=== PATIENT | female | born 1995 | race Caucasian/White ===

== ENCOUNTER 2017-08-19 11:13 | Emergency (ER) | payer OTHER, SELFPAY ==
[2017-08-19 11:37] VITALS: BP 115/80; PULSE 100; RESP 13; TEMP 36.9; O2SAT 98
[2017-08-19 11:53] LABS: Bacteria Urine None Seen
--- NOTE | 2017-08-19 12:03 | ED.LOWEXIN ---
HPI - Extremity Injury (Lower) <Cece Padilla PA-C - Last Filed: 08/19/17 20:20> General Chief Complaint: Extremity Injury, Lower Stated Complaint: RIGHT HIP PAIN Time Seen by Provider: 08/19/17 12:02 Source: patient Mode of arrival: ambulatory Limitations: no limitations History of Present Illness HPI Narrative: This 22-year-old female states that she was drinking last night, tripped and fell because she was wearing heels, and hit her right hip. She states that she felt like it was okay at the time and was walking on it, but awoke this morning with a lot of pain on the side of her hip that radiates into her mid lateral thigh. Pain is worse with trying to walk or pressure on the area. She denies any other contusion such as head contusion. Denies neck or back pain. She denies any weakness or paresthesia in the legs, bowel dysfunction or difficulty urinating. She did mention to the nurse she has had urinary frequency for a couple of days and took some azo. She denies dysuria, hematuria, urgency or other new urinary symptoms Related Data Home Medications Medication Instructions Recorded Confirmed vit-iron fum-folic ac 1 cap PO QDAY #0 06/25/16 [Mynatal] Previous Rx's Medication Instructions Recorded hydrocodone-acetaminophen [[place]] 1 - 2 tab PO Q6H PRN #10 tab 06/25/16 ondansetron [Zofran ODT] 4 mg SUBLINGUAL Q6HP PRN #10 odt 06/25/16 naproxen 500 mg PO BID PRN #14 tab 08/19/17 phenazopyridine [Pyridium] 200 mg PO TID PRN 2 Days #6 tab 08/19/17 Allergies Allergy/AdvReac Type Severity Reaction Status Date / Time Sulfa (Sulfonamide Allergy Unknown HIVES Verified 08/19/17 12:28 Antibiotics) [SULFA (SULFONAMIDE ANTIBIOTICS)] Review of Systems <Cece Padilla PA-C - Last Filed: 08/19/17 20:20> Review of Systems All systems reviewed & are unremarkable except as noted in HPI and below Exam <Cece Padilla PA-C - Last Filed: 08/19/17 20:20> Narrative Exam Narrative: GENERAL APPEARANCE: Patient sitting comfortably, in no distress. LUNGS: Clear to auscultation bilaterally. HEART: Rate and rhythm regular without murmur, normal S1 and S2, no S3 or S4. MUSCULOSKELETAL: No tenderness over the lumbosacral spine, right posterior hip or SI. She is tender over the lateral hip that the trochanter and TFL insertion to the mid TFL, no tenderness elsewhere over the hip or thigh. She has reduced active and passive range of motion secondary to tenderness, negative Junaid's test. Hip flexion strength 5/5, knee extensors and ft plantar flexion 5/5. NEUROVASCULAR: Ft are warm and pink, right lower extremity sensation grossly intact DERM: no eccymoses or abrasions Initial Vital Signs Initial Vital Signs: Vital Signs Temperature 98.4 F 08/19/17 11:37 Pulse Rate 100 H 08/19/17 11:37 Respiratory Rate 13 08/19/17 11:37 Blood Pressure 115/80 08/19/17 11:37 Pulse Oximetry 98 08/19/17 11:37 <DO Ana María Hernandez Last Filed: 08/20/17 07:24> Initial Vital Signs Initial Vital Signs: Vital Signs Temperature 98.4 F 08/19/17 11:37 Pulse Rate 100 H 08/19/17 11:37 Respiratory Rate 13 08/19/17 11:37 Blood Pressure 115/80 08/19/17 11:37 Pulse Oximetry 98 08/19/17 11:37 Course <Cece Padilla PA-C - Last Filed: 08/19/17 20:20> Orders Ordered: Discontinued Medications Ibuprofen (Advil) 800 mg PO NOW ONE Stop: 08/19/17 12:18 Last Admin: 08/19/17 12:28 Dose: 800 mg Vital Signs - 8 hr 08/19/17 12:57 Pulse Rate 83 Respiratory Rate 16 Blood Pressure [Left Arm] 115/86 H Pulse Oximetry 100 <DO Ana María Hernandez Last Filed: 08/20/17 07:24> Orders Ordered: Discontinued Medications Ibuprofen (Advil) 800 mg PO NOW ONE Stop: 08/19/17 12:18 Last Admin: 08/19/17 12:28 Dose: 800 mg Vital Signs - 8 hr 08/19/17 12:57 Pulse Rate 83 Respiratory Rate 16 Blood Pressure [Left Arm] 115/86 H Pulse Oximetry 100 MDM - Extremity Injury (Lower) <Cece Padilla PA-C - Last Filed: 08/19/17 20:20> Lab Data Lab Results 08/19/17 Range/Units 11:30 Urine RBC 1-5/hpf (0-5/HPF) Urine WBC 5-10/hpf H (0-5/HPF) Amorphous Sediment 3+ Urine Bacteria None seen (None) Ur Culture Indicated? Specimen cultured Micro UA Comment Not Reportable Imaging Data hip: Radiologist's impression: [address] [address] XRay Report Signed Patient: Anastasia Cantu MR#: [id number] : 1995 Acct:[id number] Age/Sex: 22 / F Date of Service: 08/19/17 Loc: ED Accession Number: [id number] Procedure: XR hip w pel if done RT 2V Ordering Provider: Cece Padilla P.A-C PROCEDURE: XR HIP W PEL IF DONE RT 2V INDICATIONS: lateral pain s/p fall TECHNIQUE: AP pelvis with lateral view(s) of the right hip(s). COMPARISON: None. FINDINGS: Bones: No fractures or dislocations. Pelvic ring appears intact. No suspicious bony lesions. Soft tissues: The visualized bowel gas pattern is normal. No suspicious soft tissue calcifications. IMPRESSION: No fracture. Dictated by: Fredis Muñiz M.D. on 08/19/2017 at 12:52 Approved by: Fredis Muñiz M.D. on 08/19/2017 at 12:53 <Emerson Ware DO - Last Filed: 08/20/17 07:24> Lab Data Lab Results 08/19/17 Range/Units 11:30 Urine RBC 1-5/hpf (0-5/HPF) Urine WBC 5-10/hpf H (0-5/HPF) Amorphous Sediment 3+ Urine Bacteria None seen (None) Ur Culture Indicated? Specimen cultured Micro UA Comment Not Reportable Discharge Plan Departure Patient Disposition: Home, Self-Care Clinical Impression: Tensor fascia manjula syndrome, Increased urinary frequency Discharge Date/Time: 08/19/17 13:16 Interventions: ED Discharge Assessment Last Done: 08/19/17 13:15 Instructions: Iliotibial Band Syndrome Activity Restrictions/Additional Instructions: Please rest your right hip and leg. Take the prescription naproxen every 12 hr and you can add Tylenol as needed. Use ice and heat as needed. Follow up with your PCP to determine whether your making good progress or may need further testing or referral, i.e. for physical therapy. You do not appear to have any fracture on your x-ray today. Your urine test does not show an infection today. Please follow-up with your PCP on the urinary frequency if it is not resolving with avoiding caffeine and other bladder irritants. You can take the prescription Pyridium for a day or 2 as needed. Return as we talked about if you have any acutely worsening symptoms Prescriptions: New phenazopyridine [Pyridium] 200 mg tablet 200 mg PO TID PRN (Reason: pain) 2 Days Qty: 6 RF: 0 naproxen 500 mg tablet 500 mg PO BID PRN (Reason: pain) Qty: 14 RF: 0 No Action vit-iron fum-folic ac [Mynatal] 1 EACH capsule 1 cap PO QDAY Qty: 0 RF: 0 hydrocodone-acetaminophen [[place]] 5 MG/325 MG tablet 1 - 2 tab PO Q6H PRNQty: 10 RF: 0 ondansetron [Zofran ODT] 4 MG tablet,disintegrating 4 mg Sublingual Q6HP PRNQty: 10 RF: 0 Referrals: [facility] [Provider Group] <Emerson Ware, DO - Last Filed: 08/20/17 07:24> [facility] ED Attending Malena Attestation: I was available for consultation during this patient's emergency department encounter
--- NOTE | 2017-08-19 12:06 | ED_ITS ---
HPI - Extremity Injury (Lower) <Cece Padilla PA-C - Last Filed: 08/19/17 20:20> General Chief Complaint: Extremity Injury, Lower Stated Complaint: RIGHT HIP PAIN Time Seen by Provider: 08/19/17 12:02 Source: patient Mode of arrival: ambulatory Limitations: no limitations History of Present Illness HPI Narrative: This 22-year-old female states that she was drinking last night, tripped and fell because she was wearing heels, and hit her right hip. She states that she felt like it was okay at the time and was walking on it, but awoke this morning with a lot of pain on the side of her hip that radiates into her mid lateral thigh. Pain is worse with trying to walk or pressure on the area. She denies any other contusion such as head contusion. Denies neck or back pain. She denies any weakness or paresthesia in the legs, bowel dysfunction or difficulty urinating. She did mention to the nurse she has had urinary frequency for a couple of days and took some azo. She denies dysuria, hematuria, urgency or other new urinary symptoms Related Data Home Medications Medication Instructions Recorded Confirmed vit-iron fum-folic ac 1 cap PO QDAY #0 06/25/16 [Mynatal] Previous Rx's Medication Instructions Recorded hydrocodone-acetaminophen [[place]] 1 - 2 tab PO Q6H PRN #10 tab 06/25/16 ondansetron [Zofran ODT] 4 mg SUBLINGUAL Q6HP PRN #10 odt 06/25/16 naproxen 500 mg PO BID PRN #14 tab 08/19/17 phenazopyridine [Pyridium] 200 mg PO TID PRN 2 Days #6 tab 08/19/17 Allergies Allergy/AdvReac Type Severity Reaction Status Date / Time Sulfa (Sulfonamide Allergy Unknown HIVES Verified 08/19/17 12:28 Antibiotics) [SULFA (SULFONAMIDE ANTIBIOTICS)] Review of Systems <Cece Padilla PA-C - Last Filed: 08/19/17 20:20> Review of Systems All systems reviewed & are unremarkable except as noted in HPI and below Exam <Cece Padilla PA-C - Last Filed: 08/19/17 20:20> Narrative Exam Narrative: GENERAL APPEARANCE: Patient sitting comfortably, in no distress. LUNGS: Clear to auscultation bilaterally. HEART: Rate and rhythm regular without murmur, normal S1 and S2, no S3 or S4. MUSCULOSKELETAL: No tenderness over the lumbosacral spine, right posterior hip or SI. She is tender over the lateral hip that the trochanter and TFL insertion to the mid TFL, no tenderness elsewhere over the hip or thigh. She has reduced active and passive range of motion secondary to tenderness, negative Junaid's test. Hip flexion strength 5/5, knee extensors and ft plantar flexion 5/5. NEUROVASCULAR: Ft are warm and pink, right lower extremity sensation grossly intact DERM: no eccymoses or abrasions Initial Vital Signs Initial Vital Signs: Vital Signs Temperature 98.4 F 08/19/17 11:37 Pulse Rate 100 H 08/19/17 11:37 Respiratory Rate 13 08/19/17 11:37 Blood Pressure 115/80 08/19/17 11:37 Pulse Oximetry 98 08/19/17 11:37 <DO Ana María Hernandez Last Filed: 08/20/17 07:24> Initial Vital Signs Initial Vital Signs: Vital Signs Temperature 98.4 F 08/19/17 11:37 Pulse Rate 100 H 08/19/17 11:37 Respiratory Rate 13 08/19/17 11:37 Blood Pressure 115/80 08/19/17 11:37 Pulse Oximetry 98 08/19/17 11:37 Course <Cece Padilla PA-C - Last Filed: 08/19/17 20:20> Orders Ordered: Discontinued Medications Ibuprofen (Advil) 800 mg PO NOW ONE Stop: 08/19/17 12:18 Last Admin: 08/19/17 12:28 Dose: 800 mg Vital Signs - 8 hr 08/19/17 12:57 Pulse Rate 83 Respiratory Rate 16 Blood Pressure [Left Arm] 115/86 H Pulse Oximetry 100 <DO Ana María Hernandez Last Filed: 08/20/17 07:24> Orders Ordered: Discontinued Medications Ibuprofen (Advil) 800 mg PO NOW ONE Stop: 08/19/17 12:18 Last Admin: 08/19/17 12:28 Dose: 800 mg Vital Signs - 8 hr 08/19/17 12:57 Pulse Rate 83 Respiratory Rate 16 Blood Pressure [Left Arm] 115/86 H Pulse Oximetry 100 MDM - Extremity Injury (Lower) <Cece Padilla PA-C - Last Filed: 08/19/17 20:20> Lab Data Lab Results 08/19/17 Range/Units 11:30 Urine RBC 1-5/hpf (0-5/HPF) Urine WBC 5-10/hpf H (0-5/HPF) Amorphous Sediment 3+ Urine Bacteria None seen (None) Ur Culture Indicated? Specimen cultured Micro UA Comment Not Reportable Imaging Data hip: Radiologist's impression: [address] [address] XRay Report Signed Patient: Anastasia Cantu MR#: [id number] : 1995 Acct:[id number] Age/Sex: 22 / F Date of Service: 08/19/17 Loc: ED Accession Number: [id number] Procedure: XR hip w pel if done RT 2V Ordering Provider: Cece Padilla P.A-C PROCEDURE: XR HIP W PEL IF DONE RT 2V INDICATIONS: lateral pain s/p fall TECHNIQUE: AP pelvis with lateral view(s) of the right hip(s). COMPARISON: None. FINDINGS: Bones: No fractures or dislocations. Pelvic ring appears intact. No suspicious bony lesions. Soft tissues: The visualized bowel gas pattern is normal. No suspicious soft tissue calcifications. IMPRESSION: No fracture. Dictated by: Fredis Muñiz M.D. on 08/19/2017 at 12:52 Approved by: Fredis Muñiz M.D. on 08/19/2017 at 12:53 <Emerson Ware DO - Last Filed: 08/20/17 07:24> Lab Data Lab Results 08/19/17 Range/Units 11:30 Urine RBC 1-5/hpf (0-5/HPF) Urine WBC 5-10/hpf H (0-5/HPF) Amorphous Sediment 3+ Urine Bacteria None seen (None) Ur Culture Indicated? Specimen cultured Micro UA Comment Not Reportable Discharge Plan Departure Patient Disposition: Home, Self-Care Clinical Impression: Tensor fascia manjula syndrome, Increased urinary frequency Discharge Date/Time: 08/19/17 13:16 Interventions: ED Discharge Assessment Last Done: 08/19/17 13:15 Instructions: Iliotibial Band Syndrome Activity Restrictions/Additional Instructions: Please rest your right hip and leg. Take the prescription naproxen every 12 hr and you can add Tylenol as needed. Use ice and heat as needed. Follow up with your PCP to determine whether your making good progress or may need further testing or referral, i.e. for physical therapy. You do not appear to have any fracture on your x-ray today. Your urine test does not show an infection today. Please follow-up with your PCP on the urinary frequency if it is not resolving with avoiding caffeine and other bladder irritants. You can take the prescription Pyridium for a day or 2 as needed. Return as we talked about if you have any acutely worsening symptoms Prescriptions: New phenazopyridine [Pyridium] 200 mg tablet 200 mg PO TID PRN (Reason: pain) 2 Days Qty: 6 RF: 0 naproxen 500 mg tablet 500 mg PO BID PRN (Reason: pain) Qty: 14 RF: 0 No Action vit-iron fum-folic ac [Mynatal] 1 EACH capsule 1 cap PO QDAY Qty: 0 RF: 0 hydrocodone-acetaminophen [[place]] 5 MG/325 MG tablet 1 - 2 tab PO Q6H PRNQty: 10 RF: 0 ondansetron [Zofran ODT] 4 MG tablet,disintegrating 4 mg Sublingual Q6HP PRNQty: 10 RF: 0 Referrals: [facility] [Provider Group] <Emerson Ware, DO - Last Filed: 08/20/17 07:24> [facility] ED Attending Malena Attestation: I was available for consultation during this patient's emergency department encounter
[2017-08-19 12:07] LABS: Amorphous Sediment Urine 3+; Culture Indicated Urine Specimen Cultured; RBC Urine 1-5/HPF (0-5/HPF); WBC Urine 5-10/HPF (0-5/HPF)
--- NOTE | 2017-08-19 12:17 | DI.RAD.S_ITS ---
PROCEDURE: XR HIP W PEL IF DONE RT 2V INDICATIONS: lateral pain s/p fall TECHNIQUE: AP pelvis with lateral view(s) of the right hip(s). COMPARISON: None. FINDINGS: Bones: No fractures or dislocations. Pelvic ring appears intact. No suspicious bony lesions. Soft tissues: The visualized bowel gas pattern is normal. No suspicious soft tissue calcifications. IMPRESSION: No fracture. Dictated by: Fredis Muñiz M.D. on 08/19/2017 at 12:52 Approved by: Fredis Muñiz M.D. on 08/19/2017 at 12:53
[2017-08-19] MEDS: IBUPROFEN 400 MG TABLET 800 MG PO (12:28)
[2017-08-19 12:57] VITALS: BP 115/86; PULSE 83; RESP 16; O2SAT 100
== END 2017-08-19 13:16 | disposition home or self-care (01) ==
PROVIDERS: Emergency Provider Internal Medicine
DX: M62.89 Other specified disorders of muscle (principal); R35.0 Frequency of micturition; W01.0XXA Fall on same level from slipping, tripping and stumbling without subsequent striking against object, initial encounter
CPT/HCPCS: 73502; 81003; 81015; 81025; 87077; 87086; 87186; 99282; 99284

== ENCOUNTER 2017-12-30 18:43 | Emergency (ER) | payer OTHER, SELFPAY ==
[2017-12-30 18:57] VITALS: BP 122/73; PULSE 75; RESP 12; TEMP 36.5; O2SAT 100; BMI 27.1
--- NOTE | 2017-12-30 19:00 | ED.ABDPAIN ---
HPI - Abdominal Pain <LAURENT Cates - Last Filed: 12/30/17 22:11> General Chief Complaint: Abdominal Pain Stated Complaint: LOWER ABDOMINAL PAIN Time Seen by Provider: 12/30/17 18:59 Source: patient Mode of arrival: ambulatory Limitations: no limitations History of Present Illness HPI narrative: 22-year-old female with history of PCOS as a nonsmoker here for complaint of pain into her right pelvic area over the past week. She has was seen in the emergency room a [facility] 1 week ago was diagnosed with a right ovarian cyst. She reports she is currently on her menstrual cycle. She reports that she has bleeding approximately 1 pad every 2 hr. She states she still has pad to the right pelvic region. She has an appointment with her inside sales director in the next 4 days. Denies any fevers or chills. No urinary symptoms. Positive p.o. intake. Last bowel movement was earlier today was unremarkable. No other concerns or complaints. MD complaint: other Related Data Home Medications Medication Instructions Recorded Confirmed vit-iron fum-folic ac 1 cap PO QDAY #0 06/25/16 [Mynatal] Previous Rx's Medication Instructions Recorded hydrocodone-acetaminophen [[place]] 1 - 2 tab PO Q6H PRN #10 tab 06/25/16 ondansetron [Zofran ODT] 4 mg SUBLINGUAL Q6HP PRN #10 odt 06/25/16 naproxen 500 mg PO BID PRN #14 tab 08/19/17 Allergies Allergy/AdvReac Type Severity Reaction Status Date / Time Sulfa (Sulfonamide Allergy Unknown HIVES Verified 08/19/17 12:28 Antibiotics) [SULFA (SULFONAMIDE ANTIBIOTICS)] Review of Systems <LAURENT Cates - Last Filed: 12/30/17 22:11> Constitutional Denies chills, Denies fever(s), Denies lethargy and Denies weakness Eyes Denies change in vision, Denies eye discharge, Denies irritation and Denies loss of vision ENT Ears, Nose, Mouth, and Throat: Denies change in voice, Denies neck pain and Denies sore throat Cardiovascular Denies chest pain, Denies irregular heart rhythm, Denies lightheadedness, Denies palpitations, Denies dyspnea, Denies dyspnea on exertion and Denies orthopnea Respiratory Denies cough, Denies dyspnea, Denies dyspnea on exertion and Denies wheezing Gastrointestinal Gastrointestinal: Denies abdominal pain, Denies change in bowel habits, Denies diarrhea, Denies nausea and Denies vomiting Genitourinary Comments: Right pelvic pain Musculoskeletal Denies neck pain Neurologic Denies confusion, Denies loss of vision and Denies weakness Psychiatric Denies anxiety, Denies confusion, Denies depression, Denies homicidal ideation and Denies suicidal ideation Endocrine Denies palpitations Hematologic/Lymphatic Denies easy bruising Allergic/Immunologic Denies wheezing Exam <LAURENT Cates - Last Filed: 12/30/17 22:11> Initial Vital Signs Initial Vital Signs: Vital Signs Temperature 97.7 F 12/30/17 18:57 Pulse Rate 75 12/30/17 18:57 Respiratory Rate 12 12/30/17 18:57 Blood Pressure 122/73 12/30/17 18:57 Pulse Oximetry 100 12/30/17 18:57 Const General: cooperative and well developed Nutritional Appearance: well nourished Orientation: alert, awake, oriented x3 and not confused [facility] Mouth: oral mucosae normal and moist mucous membranes Eyes Conjunctivae: conjunctivae normal Sclera: sclerae normal Pupils: PERRL EOM: EOM intact bilaterally Resp Effort & Inspection: normal respiratory effort, able to speak in complete sentences, no respiratory distress and no use of accessory muscles Auscultation: clear to auscultation bilaterally, no rales, no rhonchi and no wheezes Cardio Rate: regular rate Rhythm: regular rhythm Heart Sounds: no click, no gallops, no murmurs and no rubs Skin General: no rashes or lesions noted, No jaundice and No petechiae Neuro General: alert, oriented x3, gait normal and no focal motor deficits Speech: speech normal <Dirk Larry DO - Last Filed: 12/31/17 06:00> Initial Vital Signs Initial Vital Signs: Vital Signs Temperature 97.7 F 12/30/17 18:57 Pulse Rate 75 12/30/17 18:57 Respiratory Rate 12 12/30/17 18:57 Blood Pressure 122/73 12/30/17 18:57 Pulse Oximetry 100 12/30/17 18:57 Course <LAURENT Cates - Last Filed: 12/30/17 22:11> Orders Ordered: Discontinued Medications Hydromorphone HCl (Dilaudid) 0.5 mg IV NOW ONE Stop: 12/30/17 19:19 Last Admin: 12/30/17 19:50 Dose: 0.5 mg Sodium Chloride (Normal Saline 0.9%) 1,000 mls @ 1,000 mls/hr IV BOLUS ONE Stop: 12/30/17 20:09 Last Infusion: 12/30/17 20:48 Dose: 0 mls/hr Admin: 12/30/17 19:51 Dose: 1,000 mls/hr Ondansetron HCl (Zofran) 4 mg IV NOW ONE Stop: 12/30/17 19:19 Last Admin: 12/30/17 19:50 Dose: 4 mg Vital Signs - 8 hr 12/30/17 18:57 12/30/17 20:16 12/30/17 20:49 Temperature 97.7 F Pulse Rate 75 63 54 L Respiratory Rate 12 16 16 Blood Pressure 122/73 96/54 L Blood Pressure [Right Arm] 104/62 Pulse Oximetry 100 99 100 <Dirk Larry DO - Last Filed: 12/31/17 06:00> Orders Ordered: Discontinued Medications Hydromorphone HCl (Dilaudid) 0.5 mg IV NOW ONE Stop: 12/30/17 19:19 Last Admin: 12/30/17 19:50 Dose: 0.5 mg Sodium Chloride (Normal Saline 0.9%) 1,000 mls @ 1,000 mls/hr IV BOLUS ONE Stop: 12/30/17 20:09 Last Infusion: 12/30/17 20:48 Dose: 0 mls/hr Admin: 12/30/17 19:51 Dose: 1,000 mls/hr Ondansetron HCl (Zofran) 4 mg IV NOW ONE Stop: 12/30/17 19:19 Last Admin: 12/30/17 19:50 Dose: 4 mg Vital Signs - 8 hr 12/30/17 18:57 12/30/17 20:16 12/30/17 20:49 Temperature 97.7 F Pulse Rate 75 63 54 L Respiratory Rate 12 16 16 Blood Pressure 122/73 96/54 L Blood Pressure [Right Arm] 104/62 Pulse Oximetry 100 99 100 MDM - Abdominal Pain <LAURENT Cates - Last Filed: 12/30/17 22:11> Lab Data Result diagrams: 12/30/17 19:45 12/30/17 19:45 Lab Results 12/30/17 12/30/17 Range/Units 19:45 19:45 WBC 6.7 (4.5-11.0) X10^3/uL RBC 4.78 (4.0-5.2) X10^6/uL Hgb 13.8 (12.0-16.0) g/dL Hct 40.8 (36-46) % MCV 85.4 (80-100) fL MCH 28.9 (26-34) PG MCHC 33.9 (30-36) % RDW 13.6 (11.6-14.8) % Plt Count 197 (150-400) X10^3/uL Neut % (Auto) 49.4 L (50-75) % Lymph % (Auto) 40.0 (25-40) % Lamb % (Auto) 8.5 (3-14) % Eos % (Auto) 1.6 L (2-4) % Baso % (Auto) 0.5 (0-2) % Neut # (Auto) 3300 (5045-8027) /uL Sodium 144 (137-145) mmol/L Potassium 4.3 (3.4-5.1) mmol/L Chloride 106 (98-107) mmol/L Carbon Dioxide 28 (22-32) mmol/L BUN 11 (7-17) mg/dL Creatinine 0.60 (0.52-1.04) mg/dL Estimated GFR > 60.0 (>60) mL/min BUN/Creatinine Ratio 18.3 (6-22) Glucose 88 (70-100) mg/dL Calcium 9.6 (8.4-10.2) mg/dL Total Bilirubin 0.3 (0.2-1.3) mg/dL AST 25 (14-36) IU/L ALT 28 (9-52) IU/L Alkaline Phosphatase 69 (38-126) U/L Total Protein 7.4 (6.3-8.2) g/dL Albumin 4.6 (3.5-5.0) g/dL Globulin 2.8 (1.7-4.1) g/dL Albumin/Globulin Ratio 1.6 (1.0-2.8) Lipase 112 (23-300) U/L Point of care testing: Point of Care Testing Test Results Negative Urine Dip Bedside Urine Glucose Negative Bedside Urine Bilirubin - Negative Bedside Urine Ketone - Negative Urine Specific [place] 1.020 Bedside Urine Occult Blood + Bedside Urine pH 7.0 Bedside Urine Protein - Negative Bedside Urine Urobilinogen - Negative Bedside Urine Nitrite - Negative Bedside Urine Leukocytes - Negative Esterase Imaging Data Pelvic ultrasound : Radiologist's impression: [address] [address] Ultrasound Report Signed Patient: Anastasia Cantu LMR#: [id number] : 1995Acct:[id number] Age/Sex: te of Service: 12/30/17 Loc: ED Accession Number: [id number] Procedure: US pelvic complete Ordering Provider: Sam Garcia PROCEDURE: US PELVIC COMPLETE INDICATIONS: RIGHT PELVIC PAIN; HISTORY OVARIAN CYST TECHNIQUE: Real-time scanning was performed of the pelvic organs, with image documentation. Additional endovaginal scanning was necessary due to incomplete visualization of the adnexal and endometrial structures by transabdominal scanning. COMPARISON: None. FINDINGS: Transabdominal scanning: Limited scanning through the kidneys shows no hydronephrosis. No pathologic free abdominal or pelvic fluid. Endovaginal scanning: Uterus: Uterus is normal in size at 6.1 x 3.4 x 3.9 cm. The endometrium measures 9.2 mm in combined thickness. Ovaries: Within normal limits bilaterally to 20 mm diameter right ovarian cyst. IMPRESSION: Negative pelvic ultrasound. Dictated by: Mahad Clark M.D. on 12/30/2017 at 20:15 Approved by: Mahad Clark M.D. on 12/30/2017 at 20:15 [facility] Narrative Medical decision making narrative: CBC was obtained was unremarkable. Chem panel was obtained was unremarkable. Urinalysis was negative for urinary tract infection and infection. Pelvic ultrasound was obtained and shows a simple 2 cm cyst to the right ovary. No free fluid. No other findings. Currently prescribed pain management regimen as needed for any discomfort. Plenty of fluids and rest. Follow up with primary care provider and follow up with inside sales director as scheduled. <Dirk Larry DO - Last Filed: 12/31/17 06:00> Lab Data Lab Results 12/30/17 12/30/17 Range/Units 19:45 19:45 WBC 6.7 (4.5-11.0) X10^3/uL RBC 4.78 (4.0-5.2) X10^6/uL Hgb 13.8 (12.0-16.0) g/dL Hct 40.8 (36-46) % MCV 85.4 (80-100) fL MCH 28.9 (26-34) PG MCHC 33.9 (30-36) % RDW 13.6 (11.6-14.8) % Plt Count 197 (150-400) X10^3/uL Neut % (Auto) 49.4 L (50-75) % Lymph % (Auto) 40.0 (25-40) % Lamb % (Auto) 8.5 (3-14) % Eos % (Auto) 1.6 L (2-4) % Baso % (Auto) 0.5 (0-2) % Neut # (Auto) 3300 (4788-2363) /uL Sodium 144 (137-145) mmol/L Potassium 4.3 (3.4-5.1) mmol/L Chloride 106 (98-107) mmol/L Carbon Dioxide 28 (22-32) mmol/L BUN 11 (7-17) mg/dL Creatinine 0.60 (0.52-1.04) mg/dL Estimated GFR > 60.0 (>60) mL/min BUN/Creatinine Ratio 18.3 (6-22) Glucose 88 (70-100) mg/dL Calcium 9.6 (8.4-10.2) mg/dL Total Bilirubin 0.3 (0.2-1.3) mg/dL AST 25 (14-36) IU/L ALT 28 (9-52) IU/L Alkaline Phosphatase 69 (38-126) U/L Total Protein 7.4 (6.3-8.2) g/dL Albumin 4.6 (3.5-5.0) g/dL Globulin 2.8 (1.7-4.1) g/dL Albumin/Globulin Ratio 1.6 (1.0-2.8) Lipase 112 (23-300) U/L Point of care testing: Point of Care Testing Test Results Negative Urine Dip Bedside Urine Glucose Negative Bedside Urine Bilirubin - Negative Bedside Urine Ketone - Negative Urine Specific [place] 1.020 Bedside Urine Occult Blood + Bedside Urine pH 7.0 Bedside Urine Protein - Negative Bedside Urine Urobilinogen - Negative Bedside Urine Nitrite - Negative Bedside Urine Leukocytes - Negative Esterase Discharge Plan Departure Patient Disposition: Home Clinical Impression: Ovarian cyst Discharge Date/Time: 12/30/17 20:52 Interventions: ED Discharge Assessment Last Done: 12/30/17 20:49 Instructions: DI for Ovarian Cyst Activity Restrictions/Additional Instructions: Laboratory results today were unremarkable. Ultrasound of the pelvic region was obtained and shows a 2 cm simple right ovarian cyst. Use currently prescribed pain management regimen as needed for any discomfort. Follow up with primary care provider. Follow up with inside sales director in the next few days as scheduled. For any worsening symptoms return to the emergency room. Prescriptions: No Action vit-iron fum-folic ac [Mynatal] 1 EACH capsule 1 cap PO QDAY Qty: 0 RF: 0 hydrocodone-acetaminophen [[place]] 5 MG/325 MG tablet 1 - 2 tab PO Q6H PRNQty: 10 RF: 0 ondansetron [Zofran ODT] 4 MG tablet,disintegrating 4 mg Sublingual Q6HP PRNQty: 10 RF: 0 naproxen 500 mg tablet 500 mg PO BID PRN (Reason: pain) Qty: 14 RF: 0 Referrals: [facility] [Provider Group] <Dirk Larry DO - Last Filed: 12/31/17 06:00> [facility] Attestation: I was immediately available in the department for consultation. Documentation has been reviewed. I agree with assessment and plan.
--- NOTE | 2017-12-30 19:18 | DI.US.S_ITS ---
PROCEDURE: US PELVIC COMPLETE INDICATIONS: RIGHT PELVIC PAIN; HISTORY OVARIAN CYST TECHNIQUE: Real-time scanning was performed of the pelvic organs, with image documentation. Additional endovaginal scanning was necessary due to incomplete visualization of the adnexal and endometrial structures by transabdominal scanning. COMPARISON: None. FINDINGS: Transabdominal scanning: Limited scanning through the kidneys shows no hydronephrosis. No pathologic free abdominal or pelvic fluid. Endovaginal scanning: Uterus: Uterus is normal in size at 6.1 x 3.4 x 3.9 cm. The endometrium measures 9.2 mm in combined thickness. Ovaries: Within normal limits bilaterally to 20 mm diameter right ovarian cyst. IMPRESSION: Negative pelvic ultrasound. Dictated by: Mahad Clark M.D. on 12/30/2017 at 20:15 Approved by: Mahad Clark M.D. on 12/30/2017 at 20:15
[2017-12-30] MEDS: ONDANSETRON 4 MG/2 ML INJ IV (19:50)
[2017-12-30] MEDS: HYDROMORPHONE 1 MG INJ 0.5 MG IV (19:50)
[2017-12-30] MEDS: SODIUM CHLORIDE 0.9% 1,000 ML 1000 ML IV (19:51)
[2017-12-30 19:58] LABS: Add Manual Diff / Slide Review NO; Basophils Percent Auto 0.5 % (0-2); Eosinophils Percent Auto 1.6 % (2-4); Hematocrit 40.8 % (36-46); Hemoglobin 13.8 g/dL (12.0-16.0); Mean Corpuscular HGB Conc 33.9 % (30-36); Mean Corpuscular Hemoglobin 28.9 PG (26-34); Mean Corpuscular Volume 85.4 fL (80-100); Monocytes Percent Auto 8.5 % (3-14); Neutrophils Absolute Auto 3300 /uL (3000-5900); Neutrophils Percent Auto 49.4 % (50-75); Platelet Count 197 X10^3/uL (150-400); Red Blood Cell Count 4.78 X10^6/uL (4.0-5.2); Red Cell Distribution Width 13.6 % (11.6-14.8); White Blood Cell Count 6.7 X10^3/uL (4.5-11.0)
[2017-12-30 20:09] LABS: Alanine Aminotransferase 28 IU/L (9-52); Albumin 4.6 g/dL (3.5-5.0); Albumin Globulin Ratio 1.6 (1.0-2.8); Alkaline Phosphatase 69 U/L (38-126); Aspartate Aminotransferase 25 IU/L (14-36); BUN Creatinine Ratio 18.3 (6-22); Bilirubin Total 0.3 mg/dL (0.2-1.3); Blood Urea Nitrogen 11 mg/dL (7-17); Calcium 9.6 mg/dL (8.4-10.2); Carbon Dioxide 28 mmol/L (22-32); Chloride 106 mmol/L (98-107); Estimated Glomerular Filt Rate > 60.0 mL/min (>60); Globulin 2.8 g/dL (1.7-4.1); Glucose 88 mg/dL (70-100); HEMOLYSIS 20 (0-50); Lipase 112 U/L (23-300); Potassium 4.3 mmol/L (3.4-5.1); Sodium 144 mmol/L (137-145); Total Protein 7.4 g/dL (6.3-8.2)
[2017-12-30 20:16] VITALS: BP 104/62; PULSE 63; RESP 16; O2SAT 99
--- NOTE | 2017-12-30 20:24 | ED_ITS ---
HPI - Abdominal Pain <LAURENT Cates - Last Filed: 12/30/17 22:11> General Chief Complaint: Abdominal Pain Stated Complaint: LOWER ABDOMINAL PAIN Time Seen by Provider: 12/30/17 18:59 Source: patient Mode of arrival: ambulatory Limitations: no limitations History of Present Illness HPI narrative: 22-year-old female with history of PCOS as a nonsmoker here for complaint of pain into her right pelvic area over the past week. She has was seen in the emergency room a [facility] 1 week ago was diagnosed with a right ovarian cyst. She reports she is currently on her menstrual cycle. She reports that she has bleeding approximately 1 pad every 2 hr. She states she still has pad to the right pelvic region. She has an appointment with her portuguese tutor in the next 4 days. Denies any fevers or chills. No urinary symptoms. Positive p.o. intake. Last bowel movement was earlier today was unremarkable. No other concerns or complaints. MD complaint: other Related Data Home Medications Medication Instructions Recorded Confirmed vit-iron fum-folic ac 1 cap PO QDAY #0 06/25/16 [Mynatal] Previous Rx's Medication Instructions Recorded hydrocodone-acetaminophen [[place]] 1 - 2 tab PO Q6H PRN #10 tab 06/25/16 ondansetron [Zofran ODT] 4 mg SUBLINGUAL Q6HP PRN #10 odt 06/25/16 naproxen 500 mg PO BID PRN #14 tab 08/19/17 Allergies Allergy/AdvReac Type Severity Reaction Status Date / Time Sulfa (Sulfonamide Allergy Unknown HIVES Verified 08/19/17 12:28 Antibiotics) [SULFA (SULFONAMIDE ANTIBIOTICS)] Review of Systems <LAURENT Cates - Last Filed: 12/30/17 22:11> Constitutional Denies chills, Denies fever(s), Denies lethargy and Denies weakness Eyes Denies change in vision, Denies eye discharge, Denies irritation and Denies loss of vision ENT Ears, Nose, Mouth, and Throat: Denies change in voice, Denies neck pain and Denies sore throat Cardiovascular Denies chest pain, Denies irregular heart rhythm, Denies lightheadedness, Denies palpitations, Denies dyspnea, Denies dyspnea on exertion and Denies orthopnea Respiratory Denies cough, Denies dyspnea, Denies dyspnea on exertion and Denies wheezing Gastrointestinal Gastrointestinal: Denies abdominal pain, Denies change in bowel habits, Denies diarrhea, Denies nausea and Denies vomiting Genitourinary Comments: Right pelvic pain Musculoskeletal Denies neck pain Neurologic Denies confusion, Denies loss of vision and Denies weakness Psychiatric Denies anxiety, Denies confusion, Denies depression, Denies homicidal ideation and Denies suicidal ideation Endocrine Denies palpitations Hematologic/Lymphatic Denies easy bruising Allergic/Immunologic Denies wheezing Exam <LAURENT Cates - Last Filed: 12/30/17 22:11> Initial Vital Signs Initial Vital Signs: Vital Signs Temperature 97.7 F 12/30/17 18:57 Pulse Rate 75 12/30/17 18:57 Respiratory Rate 12 12/30/17 18:57 Blood Pressure 122/73 12/30/17 18:57 Pulse Oximetry 100 12/30/17 18:57 Const General: cooperative and well developed Nutritional Appearance: well nourished Orientation: alert, awake, oriented x3 and not confused [facility] Mouth: oral mucosae normal and moist mucous membranes Eyes Conjunctivae: conjunctivae normal Sclera: sclerae normal Pupils: PERRL EOM: EOM intact bilaterally Resp Effort & Inspection: normal respiratory effort, able to speak in complete sentences, no respiratory distress and no use of accessory muscles Auscultation: clear to auscultation bilaterally, no rales, no rhonchi and no wheezes Cardio Rate: regular rate Rhythm: regular rhythm Heart Sounds: no click, no gallops, no murmurs and no rubs Skin General: no rashes or lesions noted, No jaundice and No petechiae Neuro General: alert, oriented x3, gait normal and no focal motor deficits Speech: speech normal <Dirk Larry DO - Last Filed: 12/31/17 06:00> Initial Vital Signs Initial Vital Signs: Vital Signs Temperature 97.7 F 12/30/17 18:57 Pulse Rate 75 12/30/17 18:57 Respiratory Rate 12 12/30/17 18:57 Blood Pressure 122/73 12/30/17 18:57 Pulse Oximetry 100 12/30/17 18:57 Course <LAURENT Cates - Last Filed: 12/30/17 22:11> Orders Ordered: Discontinued Medications Hydromorphone HCl (Dilaudid) 0.5 mg IV NOW ONE Stop: 12/30/17 19:19 Last Admin: 12/30/17 19:50 Dose: 0.5 mg Sodium Chloride (Normal Saline 0.9%) 1,000 mls @ 1,000 mls/hr IV BOLUS ONE Stop: 12/30/17 20:09 Last Infusion: 12/30/17 20:48 Dose: 0 mls/hr Admin: 12/30/17 19:51 Dose: 1,000 mls/hr Ondansetron HCl (Zofran) 4 mg IV NOW ONE Stop: 12/30/17 19:19 Last Admin: 12/30/17 19:50 Dose: 4 mg Vital Signs - 8 hr 12/30/17 18:57 12/30/17 20:16 12/30/17 20:49 Temperature 97.7 F Pulse Rate 75 63 54 L Respiratory Rate 12 16 16 Blood Pressure 122/73 96/54 L Blood Pressure [Right Arm] 104/62 Pulse Oximetry 100 99 100 <Dirk Larry DO - Last Filed: 12/31/17 06:00> Orders Ordered: Discontinued Medications Hydromorphone HCl (Dilaudid) 0.5 mg IV NOW ONE Stop: 12/30/17 19:19 Last Admin: 12/30/17 19:50 Dose: 0.5 mg Sodium Chloride (Normal Saline 0.9%) 1,000 mls @ 1,000 mls/hr IV BOLUS ONE Stop: 12/30/17 20:09 Last Infusion: 12/30/17 20:48 Dose: 0 mls/hr Admin: 12/30/17 19:51 Dose: 1,000 mls/hr Ondansetron HCl (Zofran) 4 mg IV NOW ONE Stop: 12/30/17 19:19 Last Admin: 12/30/17 19:50 Dose: 4 mg Vital Signs - 8 hr 12/30/17 18:57 12/30/17 20:16 12/30/17 20:49 Temperature 97.7 F Pulse Rate 75 63 54 L Respiratory Rate 12 16 16 Blood Pressure 122/73 96/54 L Blood Pressure [Right Arm] 104/62 Pulse Oximetry 100 99 100 MDM - Abdominal Pain <LAURENT Cates - Last Filed: 12/30/17 22:11> Lab Data Result diagrams: 12/30/17 19:45 12/30/17 19:45 Lab Results 12/30/17 12/30/17 Range/Units 19:45 19:45 WBC 6.7 (4.5-11.0) X10^3/uL RBC 4.78 (4.0-5.2) X10^6/uL Hgb 13.8 (12.0-16.0) g/dL Hct 40.8 (36-46) % MCV 85.4 (80-100) fL MCH 28.9 (26-34) PG MCHC 33.9 (30-36) % RDW 13.6 (11.6-14.8) % Plt Count 197 (150-400) X10^3/uL Neut % (Auto) 49.4 L (50-75) % Lymph % (Auto) 40.0 (25-40) % [place] % (Auto) 8.5 (3-14) % Eos % (Auto) 1.6 L (2-4) % Baso % (Auto) 0.5 (0-2) % Neut # (Auto) 3300 (8558-9667) /uL Sodium 144 (137-145) mmol/L Potassium 4.3 (3.4-5.1) mmol/L Chloride 106 (98-107) mmol/L Carbon Dioxide 28 (22-32) mmol/L BUN 11 (7-17) mg/dL Creatinine 0.60 (0.52-1.04) mg/dL Estimated GFR > 60.0 (>60) mL/min BUN/Creatinine Ratio 18.3 (6-22) Glucose 88 (70-100) mg/dL Calcium 9.6 (8.4-10.2) mg/dL Total Bilirubin 0.3 (0.2-1.3) mg/dL AST 25 (14-36) IU/L ALT 28 (9-52) IU/L Alkaline Phosphatase 69 (38-126) U/L Total Protein 7.4 (6.3-8.2) g/dL Albumin 4.6 (3.5-5.0) g/dL Globulin 2.8 (1.7-4.1) g/dL Albumin/Globulin Ratio 1.6 (1.0-2.8) Lipase 112 (23-300) U/L Point of care testing: Point of Care Testing Test Results Negative Urine Dip Bedside Urine Glucose Negative Bedside Urine Bilirubin - Negative Bedside Urine Ketone - Negative Urine Specific [place] 1.020 Bedside Urine Occult Blood + Bedside Urine pH 7.0 Bedside Urine Protein - Negative Bedside Urine Urobilinogen - Negative Bedside Urine Nitrite - Negative Bedside Urine Leukocytes - Negative Esterase Imaging Data Pelvic ultrasound : Radiologist's impression: [address] [address] Ultrasound Report Signed Patient: Anastasia Cantu LMR#: [id number] : 1995Acct:[id number] Age/Sex: te of Service: 12/30/17 Loc: ED Accession Number: [id number] Procedure: US pelvic complete Ordering Provider: Sam Garcia PROCEDURE: US PELVIC COMPLETE INDICATIONS: RIGHT PELVIC PAIN; HISTORY OVARIAN CYST TECHNIQUE: Real-time scanning was performed of the pelvic organs, with image documentation. Additional endovaginal scanning was necessary due to incomplete visualization of the adnexal and endometrial structures by transabdominal scanning. COMPARISON: None. FINDINGS: Transabdominal scanning: Limited scanning through the kidneys shows no hydronephrosis. No pathologic free abdominal or pelvic fluid. Endovaginal scanning: Uterus: Uterus is normal in size at 6.1 x 3.4 x 3.9 cm. The endometrium measures 9.2 mm in combined thickness. Ovaries: Within normal limits bilaterally to 20 mm diameter right ovarian cyst. IMPRESSION: Negative pelvic ultrasound. Dictated by: Mahad Clark M.D. on 12/30/2017 at 20:15 Approved by: Mahad Clark M.D. on 12/30/2017 at 20:15 [facility] Narrative Medical decision making narrative: CBC was obtained was unremarkable. Chem panel was obtained was unremarkable. Urinalysis was negative for urinary tract infection and infection. Pelvic ultrasound was obtained and shows a simple 2 cm cyst to the right ovary. No free fluid. No other findings. Currently prescribed pain management regimen as needed for any discomfort. Plenty of fluids and rest. Follow up with primary care provider and follow up with portuguese tutor as scheduled. <Dirk Larry DO - Last Filed: 12/31/17 06:00> Lab Data Lab Results 12/30/17 12/30/17 Range/Units 19:45 19:45 WBC 6.7 (4.5-11.0) X10^3/uL RBC 4.78 (4.0-5.2) X10^6/uL Hgb 13.8 (12.0-16.0) g/dL Hct 40.8 (36-46) % MCV 85.4 (80-100) fL MCH 28.9 (26-34) PG MCHC 33.9 (30-36) % RDW 13.6 (11.6-14.8) % Plt Count 197 (150-400) X10^3/uL Neut % (Auto) 49.4 L (50-75) % Lymph % (Auto) 40.0 (25-40) % [place] % (Auto) 8.5 (3-14) % Eos % (Auto) 1.6 L (2-4) % Baso % (Auto) 0.5 (0-2) % Neut # (Auto) 3300 (2248-2794) /uL Sodium 144 (137-145) mmol/L Potassium 4.3 (3.4-5.1) mmol/L Chloride 106 (98-107) mmol/L Carbon Dioxide 28 (22-32) mmol/L BUN 11 (7-17) mg/dL Creatinine 0.60 (0.52-1.04) mg/dL Estimated GFR > 60.0 (>60) mL/min BUN/Creatinine Ratio 18.3 (6-22) Glucose 88 (70-100) mg/dL Calcium 9.6 (8.4-10.2) mg/dL Total Bilirubin 0.3 (0.2-1.3) mg/dL AST 25 (14-36) IU/L ALT 28 (9-52) IU/L Alkaline Phosphatase 69 (38-126) U/L Total Protein 7.4 (6.3-8.2) g/dL Albumin 4.6 (3.5-5.0) g/dL Globulin 2.8 (1.7-4.1) g/dL Albumin/Globulin Ratio 1.6 (1.0-2.8) Lipase 112 (23-300) U/L Point of care testing: Point of Care Testing Test Results Negative Urine Dip Bedside Urine Glucose Negative Bedside Urine Bilirubin - Negative Bedside Urine Ketone - Negative Urine Specific [place] 1.020 Bedside Urine Occult Blood + Bedside Urine pH 7.0 Bedside Urine Protein - Negative Bedside Urine Urobilinogen - Negative Bedside Urine Nitrite - Negative Bedside Urine Leukocytes - Negative Esterase Discharge Plan Departure Patient Disposition: Home Clinical Impression: Ovarian cyst Discharge Date/Time: 12/30/17 20:52 Interventions: ED Discharge Assessment Last Done: 12/30/17 20:49 Instructions: DI for Ovarian Cyst Activity Restrictions/Additional Instructions: Laboratory results today were unremarkable. Ultrasound of the pelvic region was obtained and shows a 2 cm simple right ovarian cyst. Use currently prescribed pain management regimen as needed for any discomfort. Follow up with primary care provider. Follow up with portuguese tutor in the next few days as scheduled. For any worsening symptoms return to the emergency room. Prescriptions: No Action vit-iron fum-folic ac [Mynatal] 1 EACH capsule 1 cap PO QDAY Qty: 0 RF: 0 hydrocodone-acetaminophen [[place]] 5 MG/325 MG tablet 1 - 2 tab PO Q6H PRNQty: 10 RF: 0 ondansetron [Zofran ODT] 4 MG tablet,disintegrating 4 mg Sublingual Q6HP PRNQty: 10 RF: 0 naproxen 500 mg tablet 500 mg PO BID PRN (Reason: pain) Qty: 14 RF: 0 Referrals: [facility] [employer] [facility] [Provider Group] <Dirk Larry DO - Last Filed: 12/31/17 06:00> [facility] Att[facility]: I was immediately available in the department for consultation. Documentation has been reviewed. I agree with assessment and plan.
[2017-12-30 20:49] VITALS: BP 96/54; PULSE 54; RESP 16; O2SAT 100
== END 2017-12-30 20:52 | disposition home or self-care (01) ==
PROVIDERS: Emergency Provider Nurse Practitioner Family
DX: N83.201 Unspecified ovarian cyst, right side (principal)
CPT/HCPCS: 36591; 76830; 76856; 80053; 81003; 81025; 83690; 85025; 96361; 96374; 96375; 99283; 99284; J1170; J2405

== ENCOUNTER 2018-01-16 21:23 | Emergency (ER) | payer OTHER, SELFPAY ==
[2018-01-16 21:31] VITALS: BP 104/65; PULSE 96; RESP 20; TEMP 36.8; O2SAT 98
--- NOTE | 2018-01-16 21:40 | DI.US.S_ITS ---
PROCEDURE: US PELVIC COMPLETE INDICATIONS: RIGHT LOWER QUADRANT PAIN; OVARY VS APPENDIX TECHNIQUE: Real-time scanning was performed of the pelvic organs, with image documentation. Additional endovaginal scanning was necessary due to incomplete visualization of the adnexal and endometrial structures by transabdominal scanning. COMPARISON: [facility], US, US PELVIC COMPLETE, 12/30/2017, 19:49. FINDINGS: Transabdominal scanning: Limited scanning through the kidneys shows no hydronephrosis. No pathologic free abdominal or pelvic fluid. Endovaginal scanning: Uterus: Uterus is normal in size at 6.9 x 4.5 x 4.5 cm. The endometrium measures 22.1 mm in combined thickness. Ovaries: Right adnexa measures 3.7 x 2.6 x 3.9 cm. Left adnexa measures 2.9 x 1.7 x 2.4 cm. There is a 2.0 x 1.0 x 1.6 cm complex cyst in the right adnexa which has solid component. Color Doppler evaluation demonstrates peripheral vascularity. IMPRESSION: 1. Endometrium thickened to 22.1 mm. Recommend gynecologic consultation to differentiate hyperplasia from neoplasm. 2. 2.0 x 1.0 x 1.6 cm complex cyst in the right adnexa which contains a solid component and peripheral vascularity. Lesion could represent a hemorrhagic cyst, corpus luteal cyst or ectopic . Recommend correlation with beta hCG, close clinical observation and short-term followup pelvic ultrasound. 3. Echogenic fluid noted in the cul-de-sac of the pelvis concerning for hemorrhage possibly related to ruptured hemorrhagic cyst or ectopic . 4. Findings and recommendations discussed with Dr. Liu at 0933 hours. Dictated by: Sury Mcguire MD, PhD on 01/17/2018 at 9:25 Approved by: Sury Mcguire MD, PhD on 01/17/2018 at 9:38
--- NOTE | 2018-01-16 21:45 | ED_ITS ---
HPI - Abdominal Pain <DANYELLE Hammonds-BC - Last Filed: 01/16/18 21:57> General Chief Complaint: Abdominal Pain Stated Complaint: LOWER ABDOMINAL PAIN Time Seen by Provider: 01/16/18 21:29 Source: patient Mode of arrival: ambulatory Limitations: no limitations History of Present Illness HPI narrative: Patient is a 22-year-old female nonsmoker who presents with a chief complaint of right lower quadrant pain for 2 days. She has a history of PCOS. She has a visit to this emergency department on 12/30 when she was found to have a 2 cm ovarian cyst. She states that she started having right lower quadrant pain 2 days ago and is getting worse. She denies any fevers but complains of transient nausea. She denies any fever, chest pain, shortness of breath, vomiting, diarrhea. She denies any dysuria urgency or frequency. She denies any vaginal discharge or concern of sexually transmitted infections. She took her tramadol at home last night for pain. She has not taken anything today. Related Data Home Medications Medication Instructions Recorded Confirmed vit-iron fum-folic ac 1 cap PO QDAY #0 06/25/16 [Mynatal] Previous Rx's Medication Instructions Recorded hydrocodone-acetaminophen [[place]] 1 - 2 tab PO Q6H PRN #10 tab 06/25/16 ondansetron [Zofran ODT] 4 mg SUBLINGUAL Q6HP PRN #10 odt 06/25/16 naproxen 500 mg PO BID PRN #14 tab 08/19/17 Allergies Allergy/AdvReac Type Severity Reaction Status Date / Time Sulfa (Sulfonamide Allergy Unknown HIVES Verified 08/19/17 12:28 Antibiotics) [SULFA (SULFONAMIDE ANTIBIOTICS)] Review of Systems <DANYELLE Hammonds-BC - Last Filed: 01/16/18 21:57> Review of Systems GENERAL: Denies chills, fatigue, malaise, fever, sweats. HEENT: Denies sinus pain, ear pain, sore throat, difficulty swallowing, dizziness. RESPIRATORY: Denies dyspnea, cough, wheezing, hemoptysis, sputum. CARDIOVASCULAR: Denies chest pain, palpitations, orthopnea, edema, GASTROINTESTINAL: See HPI : Denies dysuria, frequency, incontinence, hematuria, urinary retention. MUSCULOSKELETAL: denies weakness, joint pain, or bony pain SKIN: Denies rash, skin lesions, or other NEUROLOGIC: Denies weakness, headache, numbness, change in speech, confusion, seizures, incoordination. PSYCHIATRIC: No concerning psychosocial issues. 12 point review of systems is negative except for those stated above Exam <DANYELLE Hammonds-BC - Last Filed: 01/16/18 21:57> Narrative Exam Narrative: GENERAL: This is a well-nourished, well-developed patient, lying on stretcher HEAD: Atraumatic. Normocephalic. No temporal or scalp tenderness. EYES: Pupils equal round and reactive. Extraocular motions intact. No scleral icterus. No injection or drainage. ENT: Nose without bleeding, purulent drainage or septal hematoma. Throat without erythema, tonsillar hypertrophy or exudate. Uvula midline. Airway patent. NECK: Trachea midline. No JVD or lymphadenopathy. Supple, nontender, no meningeal signs. CARDIOVASCULAR: Regular rate and rhythm without murmurs, gallops, or rubs. RESPIRATORY: Clear to auscultation. Breath sounds equal bilaterally. No wheezes , rales, or rhonchi. No cough. No accessory muscle use. No increased respiratory effort. GASTROINTESTINAL: Abdomen soft, nondistended. No hepato-splenomegaly, or palpable masses. No guarding. Active bowel sounds. No pulsatile mass palpated. Diffuse tenderness over bilateral lower quadrants. No rebound tenderness. No peritoneal signs. EXTREMITIES: No clubbing, cyanosis, or edema. No joint tenderness, effusion, or edema noted. BACK: Nontender without deformity or crepitance. No flank tenderness. NEURO: AOx3. Steady on feet. SKIN: No rash or erythema. Initial Vital Signs Initial Vital Signs: Vital Signs Temperature 98.3 F 01/16/18 21:31 Pulse Rate 96 H 01/16/18 21:31 Respiratory Rate 20 01/16/18 21:31 Blood Pressure 104/65 01/16/18 21:31 Pulse Oximetry 98 01/16/18 21:31 <Roya Torrez DO - Last Filed: 01/17/18 05:27> Initial Vital Signs Initial Vital Signs: Vital Signs Temperature 98.3 F 01/16/18 21:31 Pulse Rate 96 H 01/16/18 21:31 Respiratory Rate 20 01/16/18 21:31 Blood Pressure 104/65 01/16/18 21:31 Pulse Oximetry 98 01/16/18 21:31 Course <MITZY HammondsP-BC - Last Filed: 01/16/18 21:57> Course Narrative: Patient was signed out Dr. Torrez at 22:00 with all labs and ultrasound pending. Orders Ordered: ED Orders 01/16/18 21:40 US pelvic complete Stat 01/16/18 23:07 Complete Blood Count AUTO DIFF Stat Comprehensive Metabolic Panel Stat HCG Quantitative Stat Discontinued Medications Sodium Chloride (Normal Saline 0.9%) 1,000 mls @ 1,000 mls/hr IV BOLUS ONE Stop: 01/16/18 22:41 Last Admin: 01/17/18 00:32 Dose: Not Given Ondansetron HCl (Zofran) 4 mg IV NOW ONE Stop: 01/16/18 21:52 Last Admin: 01/17/18 00:32 Dose: Not Given Ondansetron HCl (Zofran Odt) 4 mg PO NOW ONE Stop: 01/17/18 00:11 Last Admin: 01/17/18 00:23 Dose: 4 mg Tramadol HCl (Ultram) 100 mg PO NOW ONE Stop: 01/17/18 00:11 Last Admin: 01/17/18 00:23 Dose: 100 mg Vital Signs - 8 hr 01/16/18 21:31 01/16/18 23:26 01/17/18 00:50 Temperature 98.3 F 98.4 F Pulse Rate 96 H 83 93 H Respiratory Rate 20 14 16 Blood Pressure 104/65 111/74 Blood Pressure [Left Arm] 97/70 Pulse Oximetry 98 99 100 <Roya Torrez DO - Last Filed: 01/17/18 05:27> Orders Ordered: ED Orders 01/16/18 21:40 US pelvic complete Stat 01/16/18 23:07 Complete Blood Count AUTO DIFF Stat Comprehensive Metabolic Panel Stat HCG Quantitative Stat Discontinued Medications Sodium Chloride (Normal Saline 0.9%) 1,000 mls @ 1,000 mls/hr IV BOLUS ONE Stop: 01/16/18 22:41 Last Admin: 01/17/18 00:32 Dose: Not Given Ondansetron HCl (Zofran) 4 mg IV NOW ONE Stop: 01/16/18 21:52 Last Admin: 01/17/18 00:32 Dose: Not Given Ondansetron HCl (Zofran Odt) 4 mg PO NOW ONE Stop: 01/17/18 00:11 Last Admin: 01/17/18 00:23 Dose: 4 mg Tramadol HCl (Ultram) 100 mg PO NOW ONE Stop: 01/17/18 00:11 Last Admin: 01/17/18 00:23 Dose: 100 mg Vital Signs - 8 hr 01/16/18 21:31 01/16/18 23:26 01/17/18 00:50 Temperature 98.3 F 98.4 F Pulse Rate 96 H 83 93 H Respiratory Rate 20 14 16 Blood Pressure 104/65 111/74 Blood Pressure [Left Arm] 97/70 Pulse Oximetry 98 99 100 MDM - Abdominal Pain <DANYELLE Hammonds- - Last Filed: 01/16/18 21:57> Lab Data Result diagrams: 01/16/18 23:07 01/16/18 23:07 Lab Results 01/16/18 01/16/18 Range/Units 23:07 23:07 WBC 7.7 (4.5-11.0) X10^3/uL RBC 4.38 (4.0-5.2) X10^6/uL Hgb 12.8 (12.0-16.0) g/dL Hct 36.7 (36-46) % MCV 83.8 (80-100) fL MCH 29.1 (26-34) PG MCHC 34.7 (30-36) % RDW 13.4 (11.6-14.8) % Plt Count 211 (150-400) X10^3/uL Neut % (Auto) 54.0 (50-75) % Lymph % (Auto) 36.6 (25-40) % [place] % (Auto) 7.7 (3-14) % Eos % (Auto) 1.3 L (2-4) % Baso % (Auto) 0.4 (0-2) % Neut # (Auto) 4200 (8858-2919) /uL Sodium 141 (137-145) mmol/L Potassium 3.6 (3.4-5.1) mmol/L Chloride 104 (98-107) mmol/L Carbon Dioxide 25 (22-32) mmol/L BUN 13 (7-17) mg/dL Creatinine 0.50 L (0.52-1.04) mg/dL Estimated GFR > 60.0 (>60) mL/min BUN/Creatinine Ratio 26.0 H (6-22) Glucose 84 (70-100) mg/dL Calcium 9.6 (8.4-10.2) mg/dL Total Bilirubin 0.3 (0.2-1.3) mg/dL AST 27 (14-36) IU/L ALT 33 (9-52) IU/L Alkaline Phosphatase 60 (38-126) U/L Total Protein 7.1 (6.3-8.2) g/dL Albumin 4.5 (3.5-5.0) g/dL Globulin 2.6 (1.7-4.1) g/dL Albumin/Globulin Ratio 1.7 (1.0-2.8) HCG, Quant 46.04 mIU/mL <Roya Torrez, DO - Last Filed: 01/17/18 05:27> Lab Data Attestation: I reviewed the patient's lab results. Lab Results 01/16/18 01/16/18 Range/Units 23:07 23:07 WBC 7.7 (4.5-11.0) X10^3/uL RBC 4.38 (4.0-5.2) X10^6/uL Hgb 12.8 (12.0-16.0) g/dL Hct 36.7 (36-46) % MCV 83.8 (80-100) fL MCH 29.1 (26-34) PG MCHC 34.7 (30-36) % RDW 13.4 (11.6-14.8) % Plt Count 211 (150-400) X10^3/uL Neut % (Auto) 54.0 (50-75) % Lymph % (Auto) 36.6 (25-40) % [place] % (Auto) 7.7 (3-14) % Eos % (Auto) 1.3 L (2-4) % Baso % (Auto) 0.4 (0-2) % Neut # (Auto) 4200 (9886-7302) /uL Sodium 141 (137-145) mmol/L Potassium 3.6 (3.4-5.1) mmol/L Chloride 104 (98-107) mmol/L Carbon Dioxide 25 (22-32) mmol/L BUN 13 (7-17) mg/dL Creatinine 0.50 L (0.52-1.04) mg/dL Estimated GFR > 60.0 (>60) mL/min BUN/Creatinine Ratio 26.0 H (6-22) Glucose 84 (70-100) mg/dL Calcium 9.6 (8.4-10.2) mg/dL Total Bilirubin 0.3 (0.2-1.3) mg/dL AST 27 (14-36) IU/L ALT 33 (9-52) IU/L Alkaline Phosphatase 60 (38-126) U/L Total Protein 7.1 (6.3-8.2) g/dL Albumin 4.5 (3.5-5.0) g/dL Globulin 2.6 (1.7-4.1) g/dL Albumin/Globulin Ratio 1.7 (1.0-2.8) HCG, Quant 46.04 mIU/mL Imaging Data pelvic ultrasound: Radiologist's impression: right ovarian cyst approximately 4 cm in size, has some echogenic material. Has some peripheral vascularity. MDM Narrative Medical decision making narrative: Patient signed out to myself by Roya Conti. Discussed labs, imaging pending. Plan at this time. Patient has been seen for same RLQ pain, has hx of PCOS. patient's lab work shows a high HCG of 46, ultrasound shows a cyst in the right ovary has some echogenic material and peripheral vascularity. Spoke Dr. Rangel mode concern for possible ectopic although with an HCG of 46 I would expect not to see the changes on ultrasound. Um she suspects it may be very early and that is a corpus luteal cyst. Asked for patient to follow up in the next 24-48 hours to make sure HCG is doubling and to be evaluated. Discussed with patient findings suspicion that this is not an ectopic but there is a very low likelihood that it could be. 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 She plans to follow up with them and given a disc as well as her lab work results to take with her. She states the tramadol is helpful when she takes it, she plans to follow up with her provider but does have contact information for Dr. Rangel. Discharge Plan Departure Patient Disposition: Home Clinical Impression: Ovarian cyst, Elevated serum hCG Discharge Date/Time: 01/17/18 00:50 Interventions: ED Discharge Assessment Last Done: 01/17/18 00:50 Instructions: DI for Ectopic Activity Restrictions/Additional Instructions: Follow-up with Dr. Rangel or your OBGYN in the next 24-48 hours for recheck of your hCG level and re-evaluation. Her HCG level today is 46. This is very low but needs to be followed to make sure that is doubling which be what normally occurs in a . You have a cyst on her right ovary with an HCG level of 46 it is unlikely this is an ectopic but not impossible and needs to be followed closely. Continue to take Ultram as needed for pain. You may also take Tylenol 1000 mg every 8 hr as needed for pain. Return to the emergency department for fevers, rapidly increasing pain, passing out, persistent vomiting, heavy vaginal bleeding or other new or concerning symptoms. Prescriptions: No Action vit-iron fum-folic ac [Mynatal] 1 EACH capsule 1 cap PO QDAY Qty: 0 RF: 0 hydrocodone-acetaminophen [[place]] 5 MG/325 MG tablet 1 - 2 tab PO Q6H PRNQty: 10 RF: 0 ondansetron [Zofran ODT] 4 MG tablet,disintegrating 4 mg Sublingual Q6HP PRNQty: 10 RF: 0 naproxen 500 mg tablet 500 mg PO BID PRN (Reason: pain) Qty: 14 RF: 0 Referrals: Marcia Rangel MD [Physician] -
[2018-01-16 23:12] LABS: Add Manual Diff / Slide Review NO; Basophils Percent Auto 0.4 % (0-2); Eosinophils Percent Auto 1.3 % (2-4); Hematocrit 36.7 % (36-46); Hemoglobin 12.8 g/dL (12.0-16.0); Lymphocytes Percent Auto 36.6 % (25-40); Mean Corpuscular HGB Conc 34.7 % (30-36); Mean Corpuscular Hemoglobin 29.1 PG (26-34); Mean Corpuscular Volume 83.8 fL (80-100); Monocytes Percent Auto 7.7 % (3-14); Neutrophils Absolute Auto 4200 /uL (3000-5900); Platelet Count 211 X10^3/uL (150-400); Red Blood Cell Count 4.38 X10^6/uL (4.0-5.2); Red Cell Distribution Width 13.4 % (11.6-14.8); White Blood Cell Count 7.7 X10^3/uL (4.5-11.0)
[2018-01-16 23:23] LABS: Alanine Aminotransferase 33 IU/L (9-52); Albumin 4.5 g/dL (3.5-5.0); Albumin Globulin Ratio 1.7 (1.0-2.8); Alkaline Phosphatase 60 U/L (38-126); Aspartate Aminotransferase 27 IU/L (14-36); Bilirubin Total 0.3 mg/dL (0.2-1.3); Blood Urea Nitrogen 13 mg/dL (7-17); Calcium 9.6 mg/dL (8.4-10.2); Carbon Dioxide 25 mmol/L (22-32); Chloride 104 mmol/L (98-107); Estimated Glomerular Filt Rate > 60.0 mL/min (>60); Globulin 2.6 g/dL (1.7-4.1); Glucose 84 mg/dL (70-100); HEMOLYSIS < 15 (0-50); Potassium 3.6 mmol/L (3.4-5.1); Sodium 141 mmol/L (137-145); Total Protein 7.1 g/dL (6.3-8.2)
[2018-01-16 23:26] VITALS: BP 97/70; PULSE 83; RESP 14; TEMP 36.9; O2SAT 99
[2018-01-16 23:40] LABS: HCG Quantitative /Beta subunit 46.04 mIU/mL
[2018-01-17] MEDS: TRAMADOL 50 MG TABLET 100 MG PO (00:23)
[2018-01-17] MEDS: ONDANSETRON 4 MG ODT PO (00:23)
[2018-01-17 00:50] VITALS: BP 111/74; PULSE 93; RESP 16; O2SAT 100
== END 2018-01-17 00:50 | disposition home or self-care (01) ==
PROVIDERS: Nurse Practitioner Family; Emergency Provider Emergency Medicine
DX: N83.201 Unspecified ovarian cyst, right side (principal); E34.9 Endocrine disorder, unspecified
CPT/HCPCS: 36415; 76830; 76856; 80053; 84702; 85025; 99282; 99284

== ENCOUNTER 2018-02-25 18:53 | Emergency (ER) | payer OTHER, SELFPAY ==
[2018-02-25 19:03] VITALS: BP 118/80; PULSE 86; RESP 20; TEMP 36.8; O2SAT 100; BMI 27.4
--- NOTE | 2018-02-25 19:14 | ED.FEMALEGU ---
HPI - Female Genitourinary General Chief complaint: Urogenital-Female Stated complaint: LOWER ABD CRAMPING, 10 WEEKS Time Seen by Provider: 02/25/18 18:59 Source: patient Limitations: no limitations History of Present Illness HPI Narrative: Patient is a 22 year female who presents with abdominal cramping and is currently 10 weeks . She says that she noticed pink whenever she wipes. She has no back pain. She is not yet had an ultrasound. No fever or chills no vaginal discharge or bleeding. [place] has not yet had an ultrasound. Quality: Cramping Related Data Home Medications Medication Instructions Recorded Confirmed vit-iron fum-folic ac 1 cap PO QDAY #0 06/25/16 [Mynatal] Previous Rx's Medication Instructions Recorded hydrocodone-acetaminophen [[place]] 1 - 2 tab PO Q6H PRN #10 tab 06/25/16 ondansetron [Zofran ODT] 4 mg SUBLINGUAL Q6HP PRN #10 odt 06/25/16 naproxen 500 mg PO BID PRN #14 tab 08/19/17 Allergies Allergy/AdvReac Type Severity Reaction Status Date / Time Sulfa (Sulfonamide Allergy Unknown HIVES Verified 08/19/17 12:28 Antibiotics) [SULFA (SULFONAMIDE ANTIBIOTICS)] Review of Systems Review of Systems ROS Unobtainable: All systems reviewed & are unremarkable except as noted in HPI and below Constitutional Denies chills, Denies fever(s), Denies lethargy and Denies weakness Cardiovascular Denies chest pain, Denies irregular heart rhythm, Denies lightheadedness, Denies palpitations and Denies orthopnea Gastrointestinal Gastrointestinal: Denies abdominal pain, Denies change in bowel habits, Denies diarrhea, Denies nausea and Denies vomiting Genitourinary Reports hematuria, Denies flank pain, Denies urinary incontinence and Denies urinary urgency Integumentary/Breasts Denies pruritus, Denies erythema, Denies rash and Denies wounds Neurologic Denies weakness Endocrine Denies palpitations PFSH Medical History PCOS (polycystic ovarian syndrome) (Acute) Fatty liver disease, nonalcoholic (Chronic) Social History Smoking Status: Current some day smoker Comment: Exam Initial Vital Signs Initial Vital Signs: Vital Signs Temperature 98.3 F 02/25/18 19:03 Pulse Rate 86 02/25/18 19:03 Respiratory Rate 20 02/25/18 19:03 Blood Pressure 118/80 02/25/18 19:03 Pulse Oximetry 100 02/25/18 19:03 GENERAL: well-appearing young female no acute distress alert oriented x3 HEENT: Head atraumatic,EOMI, neck is supple CARDIOVASCULAR: Regular rate and rhythm without murmurs, rubs or gallops. RESPIRATORY: Breath sounds equal bilaterally, no wheezes rales or rhonchi. ABDOMEN: Soft, no real lower abdominal tenderness guarding rebound : No CVA tenderness EXTREMITIES: Normal range of motion, no clubbing or edema. Neurovascularly intact NEUROLOGICAL: Alert and oriented x4. SKIN: Warm, dry, no laceration, no petechiae, no rashes or lesions. Course Orders Ordered: ED Orders 02/25/18 19:10 Urine Microscopic Stat 02/25/18 19:14 US OB <= 14 weeks fetus Stat 02/25/18 19:25 ABO RH Type Stat Complete Blood Count AUTO DIFF Stat Comprehensive Metabolic Panel Stat HCG Quantitative Stat Vital Signs - 8 hr 02/25/18 19:03 02/25/18 21:15 Temperature 98.3 F 98.6 F Pulse Rate 86 95 H Respiratory Rate 20 18 Blood Pressure 118/80 106/73 Pulse Oximetry 100 100 MDM - Female Genitourinary Lab Data Attestation: I reviewed the patient's lab results. Result diagrams: 02/25/18 19:25 02/25/18 19:25 Lab Results 02/25/18 02/25/18 02/25/18 Range/Units 19:10 19:25 19:25 WBC 7.3 (4.5-11.0) X10^3/uL RBC 4.37 (4.0-5.2) X10^6/uL Hgb 12.7 (12.0-16.0) g/dL Hct 37.1 (36-46) % MCV 84.9 (80-100) fL MCH 29.0 (26-34) PG MCHC 34.2 (30-36) % RDW 13.3 (11.6-14.8) % Plt Count 200 (150-400) X10^3/uL Neut % (Auto) 53.3 (50-75) % Lymph % (Auto) 37.9 (25-40) % [place] % (Auto) 7.4 (3-14) % Eos % (Auto) 1.0 L (2-4) % Baso % (Auto) 0.4 (0-2) % Neut # (Auto) 3900 (3614-6288) /uL Lymph # (Auto) 2800 (5459-9323) /uL [place] # (Auto) 500 (0-900) /uL Eos # (Auto) 100 (0-450) /uL Baso # (Auto) 0 (0-100) /uL Sodium 138 (137-145) mmol/L Potassium 3.9 (3.4-5.1) mmol/L Chloride 105 (98-107) mmol/L Carbon Dioxide 24 (22-32) mmol/L BUN 8 (7-17) mg/dL Creatinine 0.60 (0.52-1.04) mg/dL Estimated GFR > 60.0 (>60) mL/min BUN/Creatinine Ratio 13.3 (6-22) Glucose 87 (70-100) mg/dL Calcium 9.2 (8.4-10.2) mg/dL Total Bilirubin 0.2 (0.2-1.3) mg/dL AST 19 (14-36) IU/L ALT 30 (9-52) IU/L Alkaline Phosphatase 65 (38-126) U/L Total Protein 7.3 (6.3-8.2) g/dL Albumin 4.6 (3.5-5.0) g/dL Globulin 2.7 (1.7-4.1) g/dL Albumin/Globulin Ratio 1.7 (1.0-2.8) HCG, Quant 94296 mIU/mL Urine RBC 0-1/hpf (0-5/HPF) Urine WBC 0-1/hpf (0-5/HPF) Ur Squamous Epith Cells 1-5 /hpf Urine Bacteria None seen (None) Urine Mucus 2+ H (Negative) Ur Culture Indicated? Cult not indicated Blood Type 02/25/18 Range/Units 19:25 WBC (4.5-11.0) X10^3/uL RBC (4.0-5.2) X10^6/uL Hgb (12.0-16.0) g/dL Hct (36-46) % MCV (80-100) fL MCH (26-34) PG MCHC (30-36) % RDW (11.6-14.8) % Plt Count (150-400) X10^3/uL Neut % (Auto) (50-75) % Lymph % (Auto) (25-40) % [place] % (Auto) (3-14) % Eos % (Auto) (2-4) % Baso % (Auto) (0-2) % Neut # (Auto) (9034-9597) /uL Lymph # (Auto) (9954-0571) /uL [place] # (Auto) (0-900) /uL Eos # (Auto) (0-450) /uL Baso # (Auto) (0-100) /uL Sodium (137-145) mmol/L Potassium (3.4-5.1) mmol/L Chloride (98-107) mmol/L Carbon Dioxide (22-32) mmol/L BUN (7-17) mg/dL Creatinine (0.52-1.04) mg/dL Estimated GFR (>60) mL/min BUN/Creatinine Ratio (6-22) Glucose (70-100) mg/dL Calcium (8.4-10.2) mg/dL Total Bilirubin (0.2-1.3) mg/dL AST (14-36) IU/L ALT (9-52) IU/L Alkaline Phosphatase (38-126) U/L Total Protein (6.3-8.2) g/dL Albumin (3.5-5.0) g/dL Globulin (1.7-4.1) g/dL Albumin/Globulin Ratio (1.0-2.8) HCG, Quant mIU/mL Urine RBC (0-5/HPF) Urine WBC (0-5/HPF) Ur Squamous Epith Cells Urine Bacteria (None) Urine Mucus (Negative) Ur Culture Indicated? Blood Type A Positive Point of Care Testing Test Results Positive Urine Dip Bedside Urine Glucose Negative Bedside Urine Bilirubin - Negative Bedside Urine Ketone - Negative Urine Specific [place] 1.030 Bedside Urine Occult Blood - Negative Bedside Urine pH 5.5 Bedside Urine Protein +/- 15 Bedside Urine Urobilinogen - Negative Bedside Urine Nitrite - Negative Bedside Urine Leukocytes - Negative Esterase Imaging Data pelvic US: Radiologist's impression: PROCEDURE: US OB <= 14 WEEKS FETUS INDICATIONS: BLEEDING, CRAMPING OUTSIDE/PRIOR DATING DATA: Last menstrual period (LMP): 12/20/17. LMP-based estimated date of delivery (MATILDA): 09/26/18. First dating scan (date and location): 02/25/18. Estimated date of delivery (MATILDA) from first dating scan: 10/11/18. TECHNIQUE: Real-time scanning was performed of the fetus and maternal pelvic organs, with image documentation. Endovaginal scanning was also performed to better visualize the fetus and maternal ovaries. COMPARISON: None. FINDINGS: Embryo: Single intrauterine gestation is seen with fetus noted. No yolk sac is seen. No cardiac activity is detected. Ivins-rump length measures 1.2 cm. Estimated gestational age is 7 weeks 3 days. Measurement variability in dating: +/- 4 weeks by LMP, +/- 7 days by mean sac diameter (use before 6 weeks gestation if crown-rump length not able to be measured), +/- 5 days by crown-rump length (up to 8 weeks 6 days gestation), +/- 7 days by crown-rump length (up to 13 weeks 6 days gestation). Maternal organs: Ovaries are not visualized on this study.. Limited images through the kidneys demonstrate no hydronephrosis. IMPRESSION: Findings consistent with intrauterine demise. Dictated by: Willam Alberts M.D. on 02/25/2018 at 20:38 MDM Narrative Medical decision making narrative: I called and spoke with Dr. Ennis on[place] [facility] [place]. Updated him on ultrasound of results. He agrees with outpatient follow-up and recommend she call tomorrow. Discharge Plan Departure Patient Disposition: Home Clinical Impression: Spontaneous miscarriage Discharge Date/Time: 02/25/18 21:15 Interventions: ED Discharge Assessment Last Done: 02/25/18 21:15 Instructions: Dealing With Miscarriage, Miscarriage Activity Restrictions/Additional Instructions: *You have been diagnosed with miscarriage *What to do: you will likely start to have more cramping and bleeding. If miscarriage does not progress you may require D and C. *Continue to take medications as directed Tylenol 975 mg every 6 hr if needed for pain Motrin 800 mg every 8 hr if needed for pain *Follow up with your OB, I have called and spoken with Dr. Ennis. Call tomorrow to schedule appointment *Return to ER if you should have bleeding more than 1 super pad or tampon an hour, any new, worsening or concerning symptoms Prescriptions: No Action vit-iron fum-folic ac [Mynatal] 1 EACH capsule 1 cap PO QDAY Qty: 0 RF: 0 hydrocodone-acetaminophen [[place]] 5 MG/325 MG tablet 1 - 2 tab PO Q6H PRNQty: 10 RF: 0 ondansetron [Zofran ODT] 4 MG tablet,disintegrating 4 mg Sublingual Q6HP PRNQty: 10 RF: 0 naproxen 500 mg tablet 500 mg PO BID PRN (Reason: pain) Qty: 14 RF: 0 Referrals: [employer] [Provider Group]
--- NOTE | 2018-02-25 19:20 | ED_ITS ---
HPI - Female Genitourinary General Chief complaint: Urogenital-Female Stated complaint: LOWER ABD CRAMPING, 10 WEEKS Time Seen by Provider: 02/25/18 18:59 Source: patient Limitations: no limitations History of Present Illness HPI Narrative: Patient is a 22 year female who presents with abdominal cramping and is currently 10 weeks . She says that she noticed pink whenever she wipes. She has no back pain. She is not yet had an ultrasound. No fever or chills no vaginal discharge or bleeding. [place] but has not yet had an ultrasound. Quality: Cramping Related Data Home Medications Medication Instructions Recorded Confirmed vit-iron fum-folic ac 1 cap PO QDAY #0 06/25/16 [Mynatal] Previous Rx's Medication Instructions Recorded hydrocodone-acetaminophen [[place]] 1 - 2 tab PO Q6H PRN #10 tab 06/25/16 ondansetron [Zofran ODT] 4 mg SUBLINGUAL Q6HP PRN #10 odt 06/25/16 naproxen 500 mg PO BID PRN #14 tab 08/19/17 Allergies Allergy/AdvReac Type Severity Reaction Status Date / Time Sulfa (Sulfonamide Allergy Unknown HIVES Verified 08/19/17 12:28 Antibiotics) [SULFA (SULFONAMIDE ANTIBIOTICS)] Review of Systems Review of Systems ROS Unobtainable: All systems reviewed & are unremarkable except as noted in HPI and below Constitutional Denies chills, Denies fever(s), Denies lethargy and Denies weakness Cardiovascular Denies chest pain, Denies irregular heart rhythm, Denies lightheadedness, Denies palpitations and Denies orthopnea Gastrointestinal Gastrointestinal: Denies abdominal pain, Denies change in bowel habits, Denies diarrhea, Denies nausea and Denies vomiting Genitourinary Reports hematuria, Denies flank pain, Denies urinary incontinence and Denies urinary urgency Integumentary/Breasts Denies pruritus, Denies erythema, Denies rash and Denies wounds Neurologic Denies weakness Endocrine Denies palpitations PFSH Medical History PCOS (polycystic ovarian syndrome) (Acute) Fatty liver disease, nonalcoholic (Chronic) Social History Smoking Status: Current some day smoker Comment: Exam Initial Vital Signs Initial Vital Signs: Vital Signs Temperature 98.3 F 02/25/18 19:03 Pulse Rate 86 02/25/18 19:03 Respiratory Rate 20 02/25/18 19:03 Blood Pressure 118/80 02/25/18 19:03 Pulse Oximetry 100 02/25/18 19:03 GENERAL: well-appearing young female no acute distress alert oriented x3 HEENT: Head atraumatic,EOMI, neck is supple CARDIOVASCULAR: Regular rate and rhythm without murmurs, rubs or gallops. RESPIRATORY: Breath sounds equal bilaterally, no wheezes rales or rhonchi. ABDOMEN: Soft, no real lower abdominal tenderness guarding rebound : No CVA tenderness EXTREMITIES: Normal range of motion, no clubbing or edema. Neurovascularly intact NEUROLOGICAL: Alert and oriented x4. SKIN: Warm, dry, no laceration, no petechiae, no rashes or lesions. Course Orders Ordered: ED Orders 02/25/18 19:10 Urine Microscopic Stat 02/25/18 19:14 US OB <= 14 weeks fetus Stat 02/25/18 19:25 ABO RH Type Stat Complete Blood Count AUTO DIFF Stat Comprehensive Metabolic Panel Stat HCG Quantitative Stat Vital Signs - 8 hr 02/25/18 19:03 02/25/18 21:15 Temperature 98.3 F 98.6 F Pulse Rate 86 95 H Respiratory Rate 20 18 Blood Pressure 118/80 106/73 Pulse Oximetry 100 100 MDM - Female Genitourinary Lab Data Attestation: I reviewed the patient's lab results. Result diagrams: 02/25/18 19:25 02/25/18 19:25 Lab Results 02/25/18 02/25/18 02/25/18 Range/Units 19:10 19:25 19:25 WBC 7.3 (4.5-11.0) X10^3/uL RBC 4.37 (4.0-5.2) X10^6/uL Hgb 12.7 (12.0-16.0) g/dL Hct 37.1 (36-46) % MCV 84.9 (80-100) fL MCH 29.0 (26-34) PG MCHC 34.2 (30-36) % RDW 13.3 (11.6-14.8) % Plt Count 200 (150-400) X10^3/uL Neut % (Auto) 53.3 (50-75) % Lymph % (Auto) 37.9 (25-40) % [place] % (Auto) 7.4 (3-14) % Eos % (Auto) 1.0 L (2-4) % Baso % (Auto) 0.4 (0-2) % Neut # (Auto) 3900 (7371-5358) /uL Lymph # (Auto) 2800 (3052-7899) /uL [place] # (Auto) 500 (0-900) /uL Eos # (Auto) 100 (0-450) /uL Baso # (Auto) 0 (0-100) /uL Sodium 138 (137-145) mmol/L Potassium 3.9 (3.4-5.1) mmol/L Chloride 105 (98-107) mmol/L Carbon Dioxide 24 (22-32) mmol/L BUN 8 (7-17) mg/dL Creatinine 0.60 (0.52-1.04) mg/dL Estimated GFR > 60.0 (>60) mL/min BUN/Creatinine Ratio 13.3 (6-22) Glucose 87 (70-100) mg/dL Calcium 9.2 (8.4-10.2) mg/dL Total Bilirubin 0.2 (0.2-1.3) mg/dL AST 19 (14-36) IU/L ALT 30 (9-52) IU/L Alkaline Phosphatase 65 (38-126) U/L Total Protein 7.3 (6.3-8.2) g/dL Albumin 4.6 (3.5-5.0) g/dL Globulin 2.7 (1.7-4.1) g/dL Albumin/Globulin Ratio 1.7 (1.0-2.8) HCG, Quant 84878 mIU/mL Urine RBC 0-1/hpf (0-5/HPF) Urine WBC 0-1/hpf (0-5/HPF) Ur Squamous Epith Cells 1-5 /hpf Urine Bacteria None seen (None) Urine Mucus 2+ H (Negative) Ur Culture Indicated? Cult not indicated Blood Type 02/25/18 Range/Units 19:25 WBC (4.5-11.0) X10^3/uL RBC (4.0-5.2) X10^6/uL Hgb (12.0-16.0) g/dL Hct (36-46) % MCV (80-100) fL MCH (26-34) PG MCHC (30-36) % RDW (11.6-14.8) % Plt Count (150-400) X10^3/uL Neut % (Auto) (50-75) % Lymph % (Auto) (25-40) % [place] % (Auto) (3-14) % Eos % (Auto) (2-4) % Baso % (Auto) (0-2) % Neut # (Auto) (1254-6322) /uL Lymph # (Auto) (1036-5407) /uL [place] # (Auto) (0-900) /uL Eos # (Auto) (0-450) /uL Baso # (Auto) (0-100) /uL Sodium (137-145) mmol/L Potassium (3.4-5.1) mmol/L Chloride (98-107) mmol/L Carbon Dioxide (22-32) mmol/L BUN (7-17) mg/dL Creatinine (0.52-1.04) mg/dL Estimated GFR (>60) mL/min BUN/Creatinine Ratio (6-22) Glucose (70-100) mg/dL Calcium (8.4-10.2) mg/dL Total Bilirubin (0.2-1.3) mg/dL AST (14-36) IU/L ALT (9-52) IU/L Alkaline Phosphatase (38-126) U/L Total Protein (6.3-8.2) g/dL Albumin (3.5-5.0) g/dL Globulin (1.7-4.1) g/dL Albumin/Globulin Ratio (1.0-2.8) HCG, Quant mIU/mL Urine RBC (0-5/HPF) Urine WBC (0-5/HPF) Ur Squamous Epith Cells Urine Bacteria (None) Urine Mucus (Negative) Ur Culture Indicated? Blood Type A Positive Point of Care Testing Test Results Positive Urine Dip Bedside Urine Glucose Negative Bedside Urine Bilirubin - Negative Bedside Urine Ketone - Negative Urine Specific [place] 1.030 Bedside Urine Occult Blood - Negative Bedside Urine pH 5.5 Bedside Urine Protein +/- 15 Bedside Urine Urobilinogen - Negative Bedside Urine Nitrite - Negative Bedside Urine Leukocytes - Negative Esterase Imaging Data pelvic US: Radiologist's impression: PROCEDURE: US OB <= 14 WEEKS FETUS INDICATIONS: BLEEDING, CRAMPING OUTSIDE/PRIOR DATING DATA: Last menstrual period (LMP): 12/20/17. LMP-based estimated date of delivery (MATILDA): 09/26/18. First dating scan (date and location): 02/25/18. Estimated date of delivery (MATILDA) from first dating scan: 10/11/18. TECHNIQUE: Real-time scanning was performed of the fetus and maternal pelvic organs, with image documentation. Endovaginal scanning was also performed to better visualize the fetus and maternal ovaries. COMPARISON: None. FINDINGS: Embryo: Single intrauterine gestation is seen with fetus noted. No yolk sac is seen. No cardiac activity is detected. [place]-rump length measures 1.2 cm. Estimated gestational age is 7 weeks 3 days. Measurement variability in dating: +/- 4 weeks by LMP, +/- 7 days by mean sac diameter (use before 6 weeks gestation if crown-rump length not able to be measured), +/ - 5 days by crown-rump length (up to 8 weeks 6 days gestation), +/- 7 days by crown-rump length (up to 13 weeks 6 days gestation). Maternal organs: Ovaries are not visualized on this study.. Limited images through the kidneys demonstrate no hydronephrosis. IMPRESSION: Findings consistent with intrauterine demise. Dictated by: Willam Alberts M.D. on 02/25/2018 at 20:38 MDM Narrative Medical decision making narrative: I called and spoke with Dr. Ennis on[place]call OB [place]. Updated him on ultrasound of results. He agrees with outpatient follow-up and recommend she call tomorrow. Discharge Plan Departure Patient Disposition: Home Clinical Impression: Spontaneous miscarriage Discharge Date/Time: 02/25/18 21:15 Interventions: ED Discharge Assessment Last Done: 02/25/18 21:15 Instructions: Dealing With Miscarriage, Miscarriage Activity Restrictions/Additional Instructions: *You have been diagnosed with miscarriage *What to do: you will likely start to have more cramping and bleeding. If miscarriage does not progress you may require D and C. *Continue to take medications as directed Tylenol 975 mg every 6 hr if needed for pain Motrin 800 mg every 8 hr if needed for pain *Follow up with your OB, I have called and spoken with Dr. Ennis. Call tomorrow to schedule appointment *Return to ER if you should have bleeding more than 1 super pad or tampon an hour, any new, worsening or concerning symptoms Prescriptions: No Action vit-iron fum-folic ac [Mynatal] 1 EACH capsule 1 cap PO QDAY Qty: 0 RF: 0 hydrocodone-acetaminophen [[place]] 5 MG/325 MG tablet 1 - 2 tab PO Q6H PRNQty: 10 RF: 0 ondansetron [Zofran ODT] 4 MG tablet,disintegrating 4 mg Sublingual Q6HP PRNQty: 10 RF: 0 naproxen 500 mg tablet 500 mg PO BID PRN (Reason: pain) Qty: 14 RF: 0 Referrals: [facility] [Provider Group]
[2018-02-25 19:34] LABS: Add Manual Diff / Slide Review NO; Basophils Absolute Auto 0 /uL (0-100); Basophils Percent Auto 0.4 % (0-2); Eosinophils Absolute Auto 100 /uL (0-450); Hematocrit 37.1 % (36-46); Hemoglobin 12.7 g/dL (12.0-16.0); Lymphocytes Absolute Auto 2800 /uL (1100-4500); Lymphocytes Percent Auto 37.9 % (25-40); Mean Corpuscular HGB Conc 34.2 % (30-36); Mean Corpuscular Volume 84.9 fL (80-100); Monocytes Absolute Auto 500 /uL (0-900); Monocytes Percent Auto 7.4 % (3-14); Neutrophils Absolute Auto 3900 /uL (1500-7000); Neutrophils Percent Auto 53.3 % (50-75); Platelet Count 200 X10^3/uL (150-400); Red Blood Cell Count 4.37 X10^6/uL (4.0-5.2); Red Cell Distribution Width 13.3 % (11.6-14.8); White Blood Cell Count 7.3 X10^3/uL (4.5-11.0)
[2018-02-25 19:46] LABS: Alanine Aminotransferase 30 IU/L (9-52); Albumin 4.6 g/dL (3.5-5.0); Albumin Globulin Ratio 1.7 (1.0-2.8); Alkaline Phosphatase 65 U/L (38-126); Aspartate Aminotransferase 19 IU/L (14-36); BUN Creatinine Ratio 13.3 (6-22); Bilirubin Total 0.2 mg/dL (0.2-1.3); Blood Urea Nitrogen 8 mg/dL (7-17); Calcium 9.2 mg/dL (8.4-10.2); Carbon Dioxide 24 mmol/L (22-32); Chloride 105 mmol/L (98-107); Estimated Glomerular Filt Rate > 60.0 mL/min (>60); Globulin 2.7 g/dL (1.7-4.1); Glucose 87 mg/dL (70-100); HEMOLYSIS < 15 (0-50); Potassium 3.9 mmol/L (3.4-5.1); Sodium 138 mmol/L (137-145); Total Protein 7.3 g/dL (6.3-8.2)
[2018-02-25 20:11] LABS: Bacteria Urine None Seen
[2018-02-25 20:24] LABS: Culture Indicated Urine Cult Not Indicated; Mucus Urine 2+ (Negative); RBC Urine 0-1/HPF (0-5/HPF); Squamous Epithelial Cell Urine 1-5 /HPF; WBC Urine 0-1/HPF (0-5/HPF)
[2018-02-25 20:27] LABS: HCG Quantitative /Beta subunit 26059 mIU/mL
[2018-02-25 21:15] VITALS: BP 106/73; PULSE 95; RESP 18; TEMP 37; O2SAT 100
== END 2018-02-25 21:15 | disposition home or self-care (01) ==
PROVIDERS: Emergency Provider Emergency Medicine
DX: O03.4 Incomplete spontaneous abortion without complication (principal)
CPT/HCPCS: 36415; 76801; 76817; 80053; 81003; 81015; 81025; 84702; 85025; 86900; 86901; 99282; 99284

== ENCOUNTER 2018-03-06 10:57 | Emergency (ER) | payer OTHER, SELFPAY ==
[2018-03-06 11:04] VITALS: BP 111/84; PULSE 86; RESP 20; TEMP 36.6; O2SAT 99
[2018-03-06 13:09] VITALS: BP 103/60; PULSE 78; RESP 18; O2SAT 98
--- NOTE | 2018-03-06 13:11 | PC.NURSE ---
Patient states having moderate bleeding, but only when she wipes. Scant amount of blood on sanitary napkins. Having low back pain that worsens with deep breaths. [place] and had an U/S and blood work, but did not hear back on results.
[2018-03-06 13:26] LABS: Add Manual Diff / Slide Review NO; Basophils Absolute Auto 0 /uL (0-100); Basophils Percent Auto 0.5 % (0-2); Eosinophils Absolute Auto 0 /uL (0-450); Eosinophils Percent Auto 0.7 % (2-4); Hematocrit 36.7 % (36-46); Hemoglobin 12.6 g/dL (12.0-16.0); Lymphocytes Absolute Auto 1900 /uL (1100-4500); Lymphocytes Percent Auto 30.2 % (25-40); Mean Corpuscular HGB Conc 34.3 % (30-36); Mean Corpuscular Hemoglobin 29.1 PG (26-34); Mean Corpuscular Volume 85.1 fL (80-100); Monocytes Absolute Auto 400 /uL (0-900); Neutrophils Absolute Auto 3900 /uL (1500-7000); Neutrophils Percent Auto 61.6 % (50-75); Platelet Count 185 X10^3/uL (150-400); Red Blood Cell Count 4.31 X10^6/uL (4.0-5.2); Red Cell Distribution Width 13.5 % (11.6-14.8); White Blood Cell Count 6.3 X10^3/uL (4.5-11.0)
[2018-03-06 13:41] LABS: Alanine Aminotransferase 23 IU/L (9-52); Albumin 4.7 g/dL (3.5-5.0); Albumin Globulin Ratio 1.6 (1.0-2.8); Alkaline Phosphatase 60 U/L (38-126); Aspartate Aminotransferase 21 IU/L (14-36); Bilirubin Total 0.3 mg/dL (0.2-1.3); Blood Urea Nitrogen 7 mg/dL (7-17); Calcium 9.6 mg/dL (8.4-10.2); Carbon Dioxide 26 mmol/L (22-32); Chloride 101 mmol/L (98-107); Estimated Glomerular Filt Rate > 60.0 mL/min (>60); Globulin 2.9 g/dL (1.7-4.1); Glucose 85 mg/dL (70-100); HEMOLYSIS < 15 (0-50); Potassium 3.8 mmol/L (3.4-5.1); Sodium 138 mmol/L (137-145); Total Protein 7.6 g/dL (6.3-8.2)
--- NOTE | 2018-03-06 13:41 | DI.US.S_ITS ---
PROCEDURE: US OB <= 14 WEEKS FETUS INDICATIONS: KNOWN DEMISE; BLEEDING OUTSIDE/PRIOR DATING DATA: Last menstrual period (LMP): 12/20/17. LMP-based estimated date of delivery (MATILDA): 09/26/18. First dating scan (date and location): 02/25/18. Estimated date of delivery (MATILDA) from first dating scan: 10/11/18. TECHNIQUE: Real-time scanning was performed of the fetus and maternal pelvic organs, with image documentation. Endovaginal scanning was also performed to better visualize the fetus and maternal ovaries. COMPARISON: [facility], OB <= 14 WEEKS FETUS, 02/25/2018, 20:17. [facility], PELVIC COMPLETE, 01/16/2018, 22:04. FINDINGS: Embryo: A single intrauterine gestational sac, containing a pole is evident trauma which has not changed in size since 02/25/18. No cardiac activity is evident despite endovaginal imaging. A normal yolk sac is not visualized. The crown-rump length measures 1.2 cm, correlated with an estimated gestational age of 7 weeks 2 days (previously estimated at 7 weeks 3 days, despite 9 days difference in the examination dates.) There may be a small subchronic hemorrhage. Nabothian cysts within the cervix are evident. Measurement variability in dating: +/- 4 weeks by LMP, +/- 7 days by mean sac diameter (use before 6 weeks gestation if crown-rump length not able to be measured), +/- 5 days by crown-rump length (up to 8 weeks 6 days gestation), +/- 7 days by crown-rump length (up to 13 weeks 6 days gestation). Maternal organs: Ovaries are not seen. Limited images through the kidneys demonstrate no hydronephrosis. IMPRESSION: Continued demise. The pole is unchanged in size. There is no cardiac activity. Dictated by: Anthony Salas M.D. on 03/06/2018 at 13:17 Approved by: Anthony Salas M.D. on 03/06/2018 at 13:24
--- NOTE | 2018-03-06 14:07 | ED.PREGNANCY ---
HPI - <DANYELLE Hammonds-BC - Last Filed: 03/06/18 14:49> General Chief complaint: Urogenital-Female Stated complaint: MISCARRIAGE, 11WKS.PREG. LOTS OF PAIN LOWER BACK Time Seen by Provider: 03/06/18 12:58 Source: patient Mode of arrival: ambulatory Limitations: no limitations History of Present Illness HPI Narrative: Patient is a 22-year-old female nonsmoker with history of spontaneous miscarriage who presents with her with a chief complaint of lower back pain. She was evaluated this facility on 02/25 with complaints of at 10 weeks and found to have had a spontaneous miscarriage at 7 weeks. [place] had a repeat beta HCG but does not know the results. She states they repeated the ultrasound. Patient states that she comes in with severe lower back pain, vaginal bleeding but only on wiping. She states that she bled 1 blood clot last week. She has not had a D&C. She denies any fevers, nausea vomiting diarrhea. She denies any chest pain or shortness of breath. Related Data Home Medications Medication Instructions Recorded Confirmed PNV cmb#95-ferrous fumarate-FA 1 tab PO DAILY 03/06/18 03/06/18 [] norethindrone acetate 03/06/18 pyridoxine (vitamin B6) [Vitamin 03/06/18 B-6] tramadol 03/06/18 Allergies Allergy/AdvReac Type Severity Reaction Status Date / Time Sulfa (Sulfonamide Allergy Unknown HIVES Verified 08/19/17 12:28 Antibiotics) [SULFA (SULFONAMIDE ANTIBIOTICS)] Review of Systems <EDDIE Hammonds - Last Filed: 03/06/18 14:49> Review of Systems GENERAL: Denies chills, fatigue, malaise, fever, sweats. HEENT: Denies sinus pain, ear pain, sore throat, difficulty swallowing, dizziness. RESPIRATORY: Denies dyspnea, cough, wheezing, hemoptysis, sputum. CARDIOVASCULAR: Denies chest pain, palpitations, orthopnea, edema, GASTROINTESTINAL: Denies nausea, vomiting, abdominal pain, diarrhea, constipation, melena. : See HPI MUSCULOSKELETAL: denies weakness, joint pain, or bony pain SKIN: Denies rash, skin lesions, or other NEUROLOGIC: Denies weakness, headache, numbness, change in speech, confusion, seizures, incoordination. PSYCHIATRIC: No concerning psychosocial issues. 12 point review of systems is negative except for those stated above Exam <KATELYN Hammonds - Last Filed: 03/06/18 14:49> Narrative Exam Narrative: GENERAL: This is a well-nourished, well-developed patient, lying on stretcher HEAD: Atraumatic. Normocephalic. No temporal or scalp tenderness. EYES: Pupils equal round and reactive. Extraocular motions intact. No scleral icterus. No injection or drainage. ENT: Nose without bleeding, purulent drainage or septal hematoma. Throat without erythema, tonsillar hypertrophy or exudate. Uvula midline. Airway patent. NECK: Trachea midline. No JVD or lymphadenopathy. Supple, nontender, no meningeal signs. CARDIOVASCULAR: Regular rate and rhythm without murmurs, gallops, or rubs. RESPIRATORY: Clear to auscultation. Breath sounds equal bilaterally. No wheezes, rales, or rhonchi. GASTROINTESTINAL: Abdomen soft, non-tender, nondistended. No hepato-splenomegaly, or palpable masses. No guarding. Active bowel sounds all 4 quadrants. EXTREMITIES: No clubbing, cyanosis, or edema. No joint tenderness, effusion, or edema noted. BACK: Nontender without deformity or crepitance. No flank tenderness. NEURO: AOx3. SKIN: No rash or erythema. Initial Vital Signs Initial Vital Signs: Vital Signs Temperature 97.9 F 03/06/18 11:04 Pulse Rate 86 03/06/18 11:04 Respiratory Rate 20 03/06/18 11:04 Blood Pressure 111/84 03/06/18 11:04 Pulse Oximetry 99 03/06/18 11:04 <Kalyn Liu DO - Last Filed: 03/07/18 09:46> Initial Vital Signs Initial Vital Signs: Vital Signs Temperature 97.9 F 03/06/18 11:04 Pulse Rate 86 03/06/18 11:04 Respiratory Rate 20 03/06/18 11:04 Blood Pressure 111/84 03/06/18 11:04 Pulse Oximetry 99 03/06/18 11:04 Course <KATELYN Hammonds - Last Filed: 03/06/18 14:49> Orders Ordered: ED Orders 03/06/18 13:18 Complete Blood Count AUTO DIFF Stat Comprehensive Metabolic Panel Stat HCG Quantitative Stat 03/06/18 13:41 US OB <= 14 weeks fetus Stat Consultations Consultation #1: I spoke with Dr Preston, the patient's OBGYN from the [place] [facility]. I discussed her continued pain, unchanged ultrasound finding since her last visit, continued high beta HCG. The patient has follow-up scheduled with him on at 1:30 p.m.. He discussed the likelihood of doing a D&C. He suggested no change in her care at this point time. Discussed this with the patient. Time: 14:30 Vital Signs - 8 hr 03/06/18 11:04 03/06/18 13:09 Temperature 97.9 F Pulse Rate 86 78 Respiratory Rate 20 18 Blood Pressure 111/84 Blood Pressure [Right Arm] 103/60 Pulse Oximetry 99 98 <Kalyn Liu DO - Last Filed: 03/07/18 09:46> Orders Ordered: ED Orders 03/06/18 13:18 Complete Blood Count AUTO DIFF Stat Comprehensive Metabolic Panel Stat HCG Quantitative Stat 03/06/18 13:41 US OB <= 14 weeks fetus Stat Vital Signs - 8 hr 03/06/18 11:04 03/06/18 13:09 Temperature 97.9 F Pulse Rate 86 78 Respiratory Rate 20 18 Blood Pressure 111/84 Blood Pressure [Right Arm] 103/60 Pulse Oximetry 99 98 MDM - OB/Uterine Contractions <KATELYN Hammonds - Last Filed: 03/06/18 14:49> Lab Data Result diagrams: 03/06/18 13:18 03/06/18 13:18 Lab Results 03/06/18 03/06/18 Range/Units 13:18 13:18 WBC 6.3 (4.5-11.0) X10^3/uL RBC 4.31 (4.0-5.2) X10^6/uL Hgb 12.6 (12.0-16.0) g/dL Hct 36.7 (36-46) % MCV 85.1 (80-100) fL MCH 29.1 (26-34) PG MCHC 34.3 (30-36) % RDW 13.5 (11.6-14.8) % Plt Count 185 (150-400) X10^3/uL Neut % (Auto) 61.6 (50-75) % Lymph % (Auto) 30.2 (25-40) % [place] % (Auto) 7.0 (3-14) % Eos % (Auto) 0.7 L (2-4) % Baso % (Auto) 0.5 (0-2) % Neut # (Auto) 3900 (1917-8877) /uL Lymph # (Auto) 1900 (9822-2611) /uL [place] # (Auto) 400 (0-900) /uL Eos # (Auto) 0 (0-450) /uL Baso # (Auto) 0 (0-100) /uL Sodium 138 (137-145) mmol/L Potassium 3.8 (3.4-5.1) mmol/L Chloride 101 (98-107) mmol/L Carbon Dioxide 26 (22-32) mmol/L BUN 7 (7-17) mg/dL Creatinine 0.50 L (0.52-1.04) mg/dL Estimated GFR > 60.0 (>60) mL/min BUN/Creatinine Ratio 14.0 (6-22) Glucose 85 (70-100) mg/dL Calcium 9.6 (8.4-10.2) mg/dL Total Bilirubin 0.3 (0.2-1.3) mg/dL AST 21 (14-36) IU/L ALT 23 (9-52) IU/L Alkaline Phosphatase 60 (38-126) U/L Total Protein 7.6 (6.3-8.2) g/dL Albumin 4.7 (3.5-5.0) g/dL Globulin 2.9 (1.7-4.1) g/dL Albumin/Globulin Ratio 1.6 (1.0-2.8) HCG, Quant 9675.0 mIU/mL MDM Narrative Medical decision making narrative: Patient presents with lower back pain and vaginal bleeding. She has had a non spontaneous miscarriage however her beta HCG is still elevated and ultrasound shows no change since her last ultrasound 9 days ago. I spoke with her OBGYN regarding her elevated beta HCG as well as no change in ultrasound. She has not passed the demise at this point time. She does have scheduled follow-up with her OBGYN in a few days. He plans on encouraging her to do a D&C at this point time. I discussed at length continued comfort medications, [id number] medications as needed and able, ice and or heat. Patient has no questions or concerns upon discharge. Discussed return precautions the emergency department including acute concerns, concern for heart attack or stroke. <Kalyn Liu DO - Last Filed: 03/07/18 09:46> Lab Data Lab Results 03/06/18 03/06/18 Range/Units 13:18 13:18 WBC 6.3 (4.5-11.0) X10^3/uL RBC 4.31 (4.0-5.2) X10^6/uL Hgb 12.6 (12.0-16.0) g/dL Hct 36.7 (36-46) % MCV 85.1 (80-100) fL MCH 29.1 (26-34) PG MCHC 34.3 (30-36) % RDW 13.5 (11.6-14.8) % Plt Count 185 (150-400) X10^3/uL Neut % (Auto) 61.6 (50-75) % Lymph % (Auto) 30.2 (25-40) % [place] % (Auto) 7.0 (3-14) % Eos % (Auto) 0.7 L (2-4) % Baso % (Auto) 0.5 (0-2) % Neut # (Auto) 3900 (7934-6681) /uL Lymph # (Auto) 1900 (3763-3257) /uL [place] # (Auto) 400 (0-900) /uL Eos # (Auto) 0 (0-450) /uL Baso # (Auto) 0 (0-100) /uL Sodium 138 (137-145) mmol/L Potassium 3.8 (3.4-5.1) mmol/L Chloride 101 (98-107) mmol/L Carbon Dioxide 26 (22-32) mmol/L BUN 7 (7-17) mg/dL Creatinine 0.50 L (0.52-1.04) mg/dL Estimated GFR > 60.0 (>60) mL/min BUN/Creatinine Ratio 14.0 (6-22) Glucose 85 (70-100) mg/dL Calcium 9.6 (8.4-10.2) mg/dL Total Bilirubin 0.3 (0.2-1.3) mg/dL AST 21 (14-36) IU/L ALT 23 (9-52) IU/L Alkaline Phosphatase 60 (38-126) U/L Total Protein 7.6 (6.3-8.2) g/dL Albumin 4.7 (3.5-5.0) g/dL Globulin 2.9 (1.7-4.1) g/dL Albumin/Globulin Ratio 1.6 (1.0-2.8) HCG, Quant 9675.0 mIU/mL Discharge Plan Departure Patient Disposition: Home Clinical Impression: Spontaneous miscarriage Discharge Date/Time: 03/06/18 14:57 Interventions: ED Discharge Assessment Last Done: 03/06/18 14:57 Instructions: Dealing With Miscarriage, DI for Miscarriage Activity Restrictions/Additional Instructions: Please follow up with you [facility] as discussed. You have an appointment on . Please continue to use [id number] pain medications as needed and able. I encourage you to use ibuprofen as well as Tylenol. Please use hot packs as needed. Please come back to the emergency department for any acute concerns. Prescriptions: No Action tramadol 50 mg tablet RF: 0 pyridoxine (vitamin B6) [Vitamin B-6] 50 mg tablet RF: 0 norethindrone acetate 5 mg tablet RF: 0 PNV cmb#95-ferrous fumarate-FA [] 28 mg iron- 800 mcg tablet 1 tab PO DAILY RF: 0 Referrals: [facility] [Provider Group] <Kalyn Liu DO - Last Filed: 03/07/18 09:46> Cosign ED Attending Malena Attestation: I was immediately available in the department for consultation. Documentation has been reviewed. I agree with assessment and plan.
--- NOTE | 2018-03-06 14:10 | ED_ITS ---
HPI - <DANYELLE Hammonds-BC - Last Filed: 03/06/18 14:49> General Chief complaint: Urogenital-Female Stated complaint: MISCARRIAGE, 11WKS.PREG. LOTS OF PAIN LOWER BACK Time Seen by Provider: 03/06/18 12:58 Source: patient Mode of arrival: ambulatory Limitations: no limitations History of Present Illness HPI Narrative: Patient is a 22-year-old female nonsmoker with history of spontaneous miscarriage who presents with her with a chief complaint of lower back pain. She was evaluated this facility on 02/25 with complaints of at 10 weeks and found to have had a spontaneous miscarriage at 7 weeks. [place] a repeat beta HCG but does not know the results. She states they repeated the ultrasound. Patient states that she comes in with severe lower back pain, vaginal bleeding but only on wiping. She states that she bled 1 blood clot last week. She has not had a D& C. She denies any fevers, nausea vomiting diarrhea. She denies any chest pain or shortness of breath. Related Data Home Medications Medication Instructions Recorded Confirmed PNV cmb#95-ferrous fumarate-FA 1 tab PO DAILY 03/06/18 03/06/18 [] norethindrone acetate 03/06/18 pyridoxine (vitamin B6) [Vitamin 03/06/18 B-6] tramadol 03/06/18 Allergies Allergy/AdvReac Type Severity Reaction Status Date / Time Sulfa (Sulfonamide Allergy Unknown HIVES Verified 08/19/17 12:28 Antibiotics) [SULFA (SULFONAMIDE ANTIBIOTICS)] Review of Systems <EDDIE Hammonds - Last Filed: 03/06/18 14:49> Review of Systems GENERAL: Denies chills, fatigue, malaise, fever, sweats. HEENT: Denies sinus pain, ear pain, sore throat, difficulty swallowing, dizziness. RESPIRATORY: Denies dyspnea, cough, wheezing, hemoptysis, sputum. CARDIOVASCULAR: Denies chest pain, palpitations, orthopnea, edema, GASTROINTESTINAL: Denies nausea, vomiting, abdominal pain, diarrhea, constipation, melena. : See HPI MUSCULOSKELETAL: denies weakness, joint pain, or bony pain SKIN: Denies rash, skin lesions, or other NEUROLOGIC: Denies weakness, headache, numbness, change in speech, confusion, seizures, incoordination. PSYCHIATRIC: No concerning psychosocial issues. 12 point review of systems is negative except for those stated above Exam <KATELYN Hammonds - Last Filed: 03/06/18 14:49> Narrative Exam Narrative: GENERAL: This is a well-nourished, well-developed patient, lying on stretcher HEAD: Atraumatic. Normocephalic. No temporal or scalp tenderness. EYES: Pupils equal round and reactive. Extraocular motions intact. No scleral icterus. No injection or drainage. ENT: Nose without bleeding, purulent drainage or septal hematoma. Throat without erythema, tonsillar hypertrophy or exudate. Uvula midline. Airway patent. NECK: Trachea midline. No JVD or lymphadenopathy. Supple, nontender, no meningeal signs. CARDIOVASCULAR: Regular rate and rhythm without murmurs, gallops, or rubs. RESPIRATORY: Clear to auscultation. Breath sounds equal bilaterally. No wheezes , rales, or rhonchi. GASTROINTESTINAL: Abdomen soft, non-tender, nondistended. No hepato-splenomegaly , or palpable masses. No guarding. Active bowel sounds all 4 quadrants. EXTREMITIES: No clubbing, cyanosis, or edema. No joint tenderness, effusion, or edema noted. BACK: Nontender without deformity or crepitance. No flank tenderness. NEURO: AOx3. SKIN: No rash or erythema. Initial Vital Signs Initial Vital Signs: Vital Signs Temperature 97.9 F 03/06/18 11:04 Pulse Rate 86 03/06/18 11:04 Respiratory Rate 20 03/06/18 11:04 Blood Pressure 111/84 03/06/18 11:04 Pulse Oximetry 99 03/06/18 11:04 <Kalyn Liu DO - Last Filed: 03/07/18 09:46> Initial Vital Signs Initial Vital Signs: Vital Signs Temperature 97.9 F 03/06/18 11:04 Pulse Rate 86 03/06/18 11:04 Respiratory Rate 20 03/06/18 11:04 Blood Pressure 111/84 03/06/18 11:04 Pulse Oximetry 99 03/06/18 11:04 Course <KATELYN Hammonds - Last Filed: 03/06/18 14:49> Orders Ordered: ED Orders 03/06/18 13:18 Complete Blood Count AUTO DIFF Stat Comprehensive Metabolic Panel Stat HCG Quantitative Stat 03/06/18 13:41 US OB <= 14 weeks fetus Stat Consultations Consultation #1: I spoke with Dr Preston, the patient's OBGYN from [place] [employer] [place]. I discussed her continued pain, unchanged ultrasound finding since her last visit, continued high beta HCG. The patient has follow-up scheduled with him on at 1:30 p.m.. He discussed the likelihood of doing a D&C. He suggested no change in her care at this point time. Discussed this with the patient. Time: 14:30 Vital Signs - 8 hr 03/06/18 11:04 03/06/18 13:09 Temperature 97.9 F Pulse Rate 86 78 Respiratory Rate 20 18 Blood Pressure 111/84 Blood Pressure [Right Arm] 103/60 Pulse Oximetry 99 98 <Kalyn Liu DO - Last Filed: 03/07/18 09:46> Orders Ordered: ED Orders 03/06/18 13:18 Complete Blood Count AUTO DIFF Stat Comprehensive Metabolic Panel Stat HCG Quantitative Stat 03/06/18 13:41 US OB <= 14 weeks fetus Stat Vital Signs - 8 hr 03/06/18 11:04 03/06/18 13:09 Temperature 97.9 F Pulse Rate 86 78 Respiratory Rate 20 18 Blood Pressure 111/84 Blood Pressure [Right Arm] 103/60 Pulse Oximetry 99 98 MDM - OB/Uterine Contractions <KATELYN Hammonds - Last Filed: 03/06/18 14:49> Lab Data Result diagrams: 03/06/18 13:18 03/06/18 13:18 Lab Results 03/06/18 03/06/18 Range/Units 13:18 13:18 WBC 6.3 (4.5-11.0) X10^3/uL RBC 4.31 (4.0-5.2) X10^6/uL Hgb 12.6 (12.0-16.0) g/dL Hct 36.7 (36-46) % MCV 85.1 (80-100) fL MCH 29.1 (26-34) PG MCHC 34.3 (30-36) % RDW 13.5 (11.6-14.8) % Plt Count 185 (150-400) X10^3/uL Neut % (Auto) 61.6 (50-75) % Lymph % (Auto) 30.2 (25-40) % [place] % (Auto) 7.0 (3-14) % Eos % (Auto) 0.7 L (2-4) % Baso % (Auto) 0.5 (0-2) % Neut # (Auto) 3900 (9576-2076) /uL Lymph # (Auto) 1900 (2692-4117) /uL [place] # (Auto) 400 (0-900) /uL Eos # (Auto) 0 (0-450) /uL Baso # (Auto) 0 (0-100) /uL Sodium 138 (137-145) mmol/L Potassium 3.8 (3.4-5.1) mmol/L Chloride 101 (98-107) mmol/L Carbon Dioxide 26 (22-32) mmol/L BUN 7 (7-17) mg/dL Creatinine 0.50 L (0.52-1.04) mg/dL Estimated GFR > 60.0 (>60) mL/min BUN/Creatinine Ratio 14.0 (6-22) Glucose 85 (70-100) mg/dL Calcium 9.6 (8.4-10.2) mg/dL Total Bilirubin 0.3 (0.2-1.3) mg/dL AST 21 (14-36) IU/L ALT 23 (9-52) IU/L Alkaline Phosphatase 60 (38-126) U/L Total Protein 7.6 (6.3-8.2) g/dL Albumin 4.7 (3.5-5.0) g/dL Globulin 2.9 (1.7-4.1) g/dL Albumin/Globulin Ratio 1.6 (1.0-2.8) HCG, Quant 9675.0 mIU/mL MDM Narrative Medical decision making narrative: Patient presents with lower back pain and vaginal bleeding. She has had a non spontaneous miscarriage however her beta HCG is still elevated and ultrasound shows no change since her last ultrasound 9 days ago. I spoke with her OBGYN regarding her elevated beta HCG as well as no change in ultrasound. She has not passed the demise at this point time. She does have scheduled follow-up with her OBGYN in a few days. He plans on encouraging her to do a D&C at this point time. I discussed at length continued comfort medications, [id number] medications as needed and able, ice and or heat. Patient has no questions or concerns upon discharge. Discussed return precautions the emergency department including acute concerns, concern for heart attack or stroke. <Kalyn Liu DO - Last Filed: 03/07/18 09:46> Lab Data Lab Results 03/06/18 03/06/18 Range/Units 13:18 13:18 WBC 6.3 (4.5-11.0) X10^3/uL RBC 4.31 (4.0-5.2) X10^6/uL Hgb 12.6 (12.0-16.0) g/dL Hct 36.7 (36-46) % MCV 85.1 (80-100) fL MCH 29.1 (26-34) PG MCHC 34.3 (30-36) % RDW 13.5 (11.6-14.8) % Plt Count 185 (150-400) X10^3/uL Neut % (Auto) 61.6 (50-75) % Lymph % (Auto) 30.2 (25-40) % [place] % (Auto) 7.0 (3-14) % Eos % (Auto) 0.7 L (2-4) % Baso % (Auto) 0.5 (0-2) % Neut # (Auto) 3900 (1604-4969) /uL Lymph # (Auto) 1900 (7401-0941) /uL [place] # (Auto) 400 (0-900) /uL Eos # (Auto) 0 (0-450) /uL Baso # (Auto) 0 (0-100) /uL Sodium 138 (137-145) mmol/L Potassium 3.8 (3.4-5.1) mmol/L Chloride 101 (98-107) mmol/L Carbon Dioxide 26 (22-32) mmol/L BUN 7 (7-17) mg/dL Creatinine 0.50 L (0.52-1.04) mg/dL Estimated GFR > 60.0 (>60) mL/min BUN/Creatinine Ratio 14.0 (6-22) Glucose 85 (70-100) mg/dL Calcium 9.6 (8.4-10.2) mg/dL Total Bilirubin 0.3 (0.2-1.3) mg/dL AST 21 (14-36) IU/L ALT 23 (9-52) IU/L Alkaline Phosphatase 60 (38-126) U/L Total Protein 7.6 (6.3-8.2) g/dL Albumin 4.7 (3.5-5.0) g/dL Globulin 2.9 (1.7-4.1) g/dL Albumin/Globulin Ratio 1.6 (1.0-2.8) HCG, Quant 9675.0 mIU/mL Discharge Plan Departure Patient Disposition: Home Clinical Impression: Spontaneous miscarriage Discharge Date/Time: 03/06/18 14:57 Interventions: ED Discharge Assessment Last Done: 03/06/18 14:57 Instructions: Dealing With Miscarriage, DI for Miscarriage Activity Restrictions/Additional Instructions: Please follow up with you Tractor Engine Assembler as discussed. You have an appointment on . Please continue to use [id number] pain medications as needed and able. I encourage you to use ibuprofen as well as Tylenol. Please use hot packs as needed. Please come back to the emergency department for any acute concerns. Prescriptions: No Action tramadol 50 mg tablet RF: 0 pyridoxine (vitamin B6) [Vitamin B-6] 50 mg tablet RF: 0 norethindrone acetate 5 mg tablet RF: 0 PNV cmb#95-ferrous fumarate-FA [] 28 mg iron- 800 mcg tablet 1 tab PO DAILY RF: 0 Referrals: [employer] [facility] [Provider Group] <Kalyn Liu DO - Last Filed: 03/07/18 09:46> Cosign ED Attending Malena Attestation: I was immediately available in the department for consultation. Documentation has been reviewed. I agree with assessment and plan.
[2018-03-06 14:53] VITALS: BP 119/79; PULSE 81; RESP 18; TEMP 36.8; O2SAT 100
== END 2018-03-06 14:57 | disposition home or self-care (01) ==
PROVIDERS: Emergency Provider Nurse Practitioner Family
DX: O03.9 Complete or unspecified spontaneous abortion without complication (principal)
CPT/HCPCS: 36415; 76801; 76817; 80053; 84702; 85025; 99282; 99284

== ENCOUNTER 2018-03-07 22:47 | Emergency (ER) | payer OTHER, SELFPAY ==
--- NOTE | 2018-03-07 22:54 | DI.US.S_ITS ---
PROCEDURE: US OB <= 14 WEEKS FETUS INDICATIONS: KNOWN DEMISE; BACK PAIN, BLEEDING OUTSIDE/PRIOR DATING DATA: Last menstrual period (LMP): 12/20/2017. LMP-based estimated date of delivery (MATILDA): 09/26/3018. First dating scan (date and location): 02/25/2018 at . Estimated date of delivery (MATILDA) from first dating scan: 10/11/2018. TECHNIQUE: Real-time scanning was performed of the fetus and maternal pelvic organs, with image documentation. Endovaginal scanning: Performed for better visualization of the fetus and maternal adnexal structures. COMPARISON: [facility], OB <= 14 WEEKS FETUS, 03/06/2018, 13:34. [facility], OB <= 14 WEEKS FETUS, 02/25/2018, 20:17. FINDINGS: Embryo: There is an IUP with a pole. Based on the initial ultrasound, the estimated gestational age is 8 weeks 6 days. No cardiac activity present consistent with demise. Yolk sac appears small and irregular. Maternal organs: Right ovaries not visualized. Left ovary is normal. Limited images through the kidneys demonstrate no hydronephrosis. IMPRESSION: The ultrasonic findings are consistent with demise. No significant change from the last exam. No significant discrepancy with the night warehouse selector radiology preliminary report. Dictated by: Clara Painter M.D. on 03/08/2018 at 9:12 Approved by: Clara Painter M.D. on 03/08/2018 at 9:18
[2018-03-07 22:59] VITALS: BP 102/77; PULSE 80; RESP 14; TEMP 36.7; O2SAT 100; BMI 27.4
--- NOTE | 2018-03-07 23:33 | ED.PREGNANCY ---
HPI - General Chief complaint: Vaginal Bleeding Stated complaint: BLEEDING GETTING WORSE S/P MISCARRIAGE Time Seen by Provider: 03/07/18 22:52 Source: patient and family Mode of arrival: ambulatory Limitations: no limitations History of Present Illness HPI Narrative: 22-year-old female, nonsmoker returns to the emergency department for ongoing evaluation of a failed . She is a whom developed some spotting on February 25. She was at 11 weeks and had an emergency department evaluation and ultrasound noting a demise at about 7 weeks. The following day she developed more intense bleeding which proceeded until she return to the emergency department on March 06. Again she had a thorough evaluation and repeat ultrasound noted no change, she still had retained products. She [place] paper[place] over the evening started passing clots and developed heavy bleeding over the past few hours and now foul smell. She has episodes of intense lower pelvic cramping. She denies fever or chills. She has some nausea but no vomiting. MD Complaint: vaginal bleeding Onset (ago): hour(s) Pain Consistency: intermittent Location: pelvis Severity: moderate Quality: Aching and Cramping Relieving factors: none Exacerbating factors: none Associated symptoms: nausea and vaginal bleeding Vaginal discharge: none Vaginal bleeding: heavy and clots Patient : Yes OB History - Current : other care: followed by OB Related Data : 1 Para: 0 Home Medications Medication Instructions Recorded Confirmed PNV cmb#95-ferrous fumarate-FA 1 tab PO DAILY 03/06/18 03/06/18 [] norethindrone acetate 03/06/18 pyridoxine (vitamin B6) [Vitamin 03/06/18 B-6] tramadol 03/06/18 Allergies Allergy/AdvReac Type Severity Reaction Status Date / Time Sulfa (Sulfonamide Allergy Unknown HIVES Verified 03/07/18 22:59 Antibiotics) [SULFA (SULFONAMIDE ANTIBIOTICS)] Review of Systems Constitutional Denies chills, Denies fever(s), Denies lethargy and Denies weakness Eyes Denies change in vision, Denies eye discharge, Denies irritation and Denies loss of vision ENT Ears, Nose, Mouth, and Throat: Denies change in voice, Denies neck pain and Denies sore throat Cardiovascular Denies chest pain, Denies irregular heart rhythm, Denies lightheadedness, Denies palpitations, Denies dyspnea, Denies dyspnea on exertion and Denies orthopnea Respiratory Denies cough, Denies dyspnea, Denies dyspnea on exertion and Denies wheezing Gastrointestinal Gastrointestinal: Denies abdominal pain, Denies change in bowel habits, Denies diarrhea, Denies nausea and Denies vomiting Genitourinary Denies hematuria, Denies flank pain, Denies urinary incontinence and Denies urinary urgency Musculoskeletal Denies neck pain Integumentary/Breasts Denies pruritus, Denies erythema, Denies rash and Denies wounds Neurologic Denies confusion, Denies loss of vision and Denies weakness Psychiatric Denies anxiety, Denies confusion, Denies depression, Denies homicidal ideation and Denies suicidal ideation Endocrine Denies palpitations Hematologic/Lymphatic Denies easy bruising Allergic/Immunologic Denies wheezing PMFSH - Past Medical History Patient : Yes Exam Narrative Exam Narrative: GENERAL: 22-year-old female, in good spirits and in no obvious distress HEAD: Atraumatic. Normocephalic. No temporal or scalp tenderness. EYES: Pupils equal round and reactive. Extraocular motions intact. No scleral icterus. No injection or drainage. ENT: Nose without bleeding, purulent drainage or septal hematoma. Throat without erythema, tonsillar hypertrophy or exudate. Uvula midline. Airway patent. NECK: Trachea midline. No JVD or lymphadenopathy. Supple, nontender, no meningeal signs. CARDIOVASCULAR: Regular rate and rhythm without murmurs, gallops, or rubs. RESPIRATORY: Clear to auscultation. Breath sounds equal bilaterally. No wheezes, rales, or rhonchi. GASTROINTESTINAL: Abdomen soft, non-tender, nondistended. No hepato-splenomegaly, or palpable masses. No guarding. PELVIC: Minimal dark bleeding via closed cervical os. Performed with patient's permission and female nursing engravings polisher at bedside EXTREMITIES: No clubbing, cyanosis, or edema. No joint tenderness, effusion, or edema noted. BACK: Nontender without deformity or crepitance. No flank tenderness. NEURO: AOx3. SKIN: No rash or erythema. Initial Vital Signs Initial Vital Signs: Vital Signs Temperature 98.1 F 03/07/18 22:59 Pulse Rate 80 03/07/18 22:59 Respiratory Rate 14 03/07/18 22:59 Blood Pressure 102/77 03/07/18 22:59 Pulse Oximetry 100 01/30/19 22:59 Course Orders Ordered: ED Orders 03/07/18 22:54 US OB <= 14 weeks fetus Stat 03/07/18 23:43 HCG Quantitative Stat Hemoglobin and Hematocrit Stat 03/08/18 00:08 Type and Screen Stat Consultations Consultation #1: Called to on-call sun warper tender and discussed case. She recommends patient go home and contact the office at 8:00 a.m. to be sure she is on the schedule for an appointment later today. She will likely have a D&C on Monday Vital Signs - 8 hr 03/07/18 22:59 03/08/18 00:36 03/08/18 00:42 Temperature 98.1 F Pulse Rate 80 87 Pulse Rate [Orthostatic Lying] 70 Pulse Rate [Orthostatic Sitting] 90 Pulse Rate [Orthostatic Standing] 87 Respiratory Rate 14 Blood Pressure 102/77 110/73 Blood Pressure [Orthostatic Lying] 97/63 Blood Pressure [Orthostatic Sitting] 96/76 Blood Pressure [Orthostatic Standing] 110/73 Pulse Oximetry 100 100 MDM - OB/Uterine Contractions Medical Records Attestation: I reviewed the patient's medical records. Lab Data Attestation: I reviewed the patient's lab results. Result diagrams: 03/07/18 23:43 Lab Results 03/07/18 03/07/18 03/07/18 Range/Units 23:43 23:43 23:43 Hgb 12.6 (12.0-16.0) g/dL Hct 37.0 (36-46) % HCG, Quant 7795.2 mIU/mL Blood Type A Positive Antibody Screen Negative Imaging Data US Pelvis: Radiologist's impression: demise at 7 weeks 3 days, no change from prior two US over the last 12 days Discharge Plan Departure Patient Disposition: Home Clinical Impression: Abnormal vaginal bleeding, demise Discharge Date/Time: 03/08/18 00:51 Interventions: ED Discharge Assessment Last Done: 03/08/18 00:42 Instructions: DI for Miscarriage Activity Restrictions/Additional Instructions: *You have been diagnosed with [ failed , vaginal bleeding ] *What to do: *Follow up with your OB provider tomorrow call for an appointment. Let them know you were seen in the Emergency Department and that we ask that you be seen in follow up *Return to ER if you should have any new, worsening or concerning symptoms, such as [increased bleeding or pain ] Prescriptions: No Action tramadol 50 mg tablet RF: 0 pyridoxine (vitamin B6) [Vitamin B-6] 50 mg tablet RF: 0 norethindrone acetate 5 mg tablet RF: 0 PNV cmb#95-ferrous fumarate-FA [] 28 mg iron- 800 mcg tablet 1 tab PO DAILY RF: 0
--- NOTE | 2018-03-07 23:53 | ED_ITS ---
HPI - General Chief complaint: Vaginal Bleeding Stated complaint: BLEEDING GETTING WORSE S/P MISCARRIAGE Time Seen by Provider: 03/07/18 22:52 Source: patient and family Mode of arrival: ambulatory Limitations: no limitations History of Present Illness HPI Narrative: 22-year-old female, nonsmoker returns to the emergency department for ongoing evaluation of a failed . She is a whom developed some spotting on February 25. She was at 11 weeks and had an emergency department evaluation and ultrasound noting a demise at about 7 weeks. The following day she developed more intense bleeding which proceeded until she return to the emergency department on March 06. Again she had a thorough evaluation and repeat ultrasound noted no change, she still had retained products. [place] over the evening started passing clots and developed heavy bleeding over the past few hours and now foul smell. She has episodes of intense lower pelvic cramping. She denies fever or chills. She has some nausea but no vomiting. MD Complaint: vaginal bleeding Onset (ago): hour(s) Pain Consistency: intermittent Location: pelvis Severity: moderate Quality: Aching and Cramping Relieving factors: none Exacerbating factors: none Associated symptoms: nausea and vaginal bleeding Vaginal discharge: none Vaginal bleeding: heavy and clots Patient : Yes OB History - Current : other care: followed by OB Related Data : 1 Para: 0 Home Medications Medication Instructions Recorded Confirmed PNV cmb#95-ferrous fumarate-FA 1 tab PO DAILY 03/06/18 03/06/18 [] norethindrone acetate 03/06/18 pyridoxine (vitamin B6) [Vitamin 03/06/18 B-6] tramadol 03/06/18 Allergies Allergy/AdvReac Type Severity Reaction Status Date / Time Sulfa (Sulfonamide Allergy Unknown HIVES Verified 03/07/18 22:59 Antibiotics) [SULFA (SULFONAMIDE ANTIBIOTICS)] Review of Systems Constitutional Denies chills, Denies fever(s), Denies lethargy and Denies weakness Eyes Denies change in vision, Denies eye discharge, Denies irritation and Denies loss of vision ENT Ears, Nose, Mouth, and Throat: Denies change in voice, Denies neck pain and Denies sore throat Cardiovascular Denies chest pain, Denies irregular heart rhythm, Denies lightheadedness, Denies palpitations, Denies dyspnea, Denies dyspnea on exertion and Denies orthopnea Respiratory Denies cough, Denies dyspnea, Denies dyspnea on exertion and Denies wheezing Gastrointestinal Gastrointestinal: Denies abdominal pain, Denies change in bowel habits, Denies diarrhea, Denies nausea and Denies vomiting Genitourinary Denies hematuria, Denies flank pain, Denies urinary incontinence and Denies urinary urgency Musculoskeletal Denies neck pain Integumentary/Breasts Denies pruritus, Denies erythema, Denies rash and Denies wounds Neurologic Denies confusion, Denies loss of vision and Denies weakness Psychiatric Denies anxiety, Denies confusion, Denies depression, Denies homicidal ideation and Denies suicidal ideation Endocrine Denies palpitations Hematologic/Lymphatic Denies easy bruising Allergic/Immunologic Denies wheezing PMFSH - Past Medical History Patient : Yes Exam Narrative Exam Narrative: GENERAL: 22-year-old female, in good spirits and in no obvious distress HEAD: Atraumatic. Normocephalic. No temporal or scalp tenderness. EYES: Pupils equal round and reactive. Extraocular motions intact. No scleral icterus. No injection or drainage. ENT: Nose without bleeding, purulent drainage or septal hematoma. Throat without erythema, tonsillar hypertrophy or exudate. Uvula midline. Airway patent. NECK: Trachea midline. No JVD or lymphadenopathy. Supple, nontender, no meningeal signs. CARDIOVASCULAR: Regular rate and rhythm without murmurs, gallops, or rubs. RESPIRATORY: Clear to auscultation. Breath sounds equal bilaterally. No wheezes , rales, or rhonchi. GASTROINTESTINAL: Abdomen soft, non-tender, nondistended. No hepato-splenomegaly , or palpable masses. No guarding. PELVIC: Minimal dark bleeding via closed cervical os. Performed with patient' s permission and female nursing turn sewer at bedside EXTREMITIES: No clubbing, cyanosis, or edema. No joint tenderness, effusion, or edema noted. BACK: Nontender without deformity or crepitance. No flank tenderness. NEURO: AOx3. SKIN: No rash or erythema. Initial Vital Signs Initial Vital Signs: Vital Signs Temperature 98.1 F 03/07/18 22:59 Pulse Rate 80 03/07/18 22:59 Respiratory Rate 14 03/07/18 22:59 Blood Pressure 102/77 03/07/18 22:59 Pulse Oximetry 100 01/30/19 22:59 Course Orders Ordered: ED Orders 03/07/18 22:54 US OB <= 14 weeks fetus Stat 03/07/18 23:43 HCG Quantitative Stat Hemoglobin and Hematocrit Stat 03/08/18 00:08 Type and Screen Stat Consultations Consultation #1: Called to on-call sun tuberculosis specialist and discussed case. She recommends patient go home and contact the office at 8:00 a.m. to be sure she is on the schedule for an appointment later today. She will likely have a D&C on Monday Vital Signs - 8 hr 03/07/18 22:59 03/08/18 00:36 03/08/18 00:42 Temperature 98.1 F Pulse Rate 80 87 Pulse Rate [Orthostatic Lying] 70 Pulse Rate [Orthostatic Sitting] 90 Pulse Rate [Orthostatic Standing] 87 Respiratory Rate 14 Blood Pressure 102/77 110/73 Blood Pressure [Orthostatic Lying] 97/63 Blood Pressure [Orthostatic Sitting] 96/76 Blood Pressure [Orthostatic Standing] 110/73 Pulse Oximetry 100 100 MDM - OB/Uterine Contractions Medical Records Attestation: I reviewed the patient's medical records. Lab Data Attestation: I reviewed the patient's lab results. Result diagrams: 03/07/18 23:43 Lab Results 03/07/18 03/07/18 03/07/18 Range/Units 23:43 23:43 23:43 Hgb 12.6 (12.0-16.0) g/dL Hct 37.0 (36-46) % HCG, Quant 7795.2 mIU/mL Blood Type A Positive Antibody Screen Negative Imaging Data US Pelvis: Radiologist's impression: demise at 7 weeks 3 days, no change from prior two US over the last 12 days Discharge Plan Departure Patient Disposition: Home Clinical Impression: Abnormal vaginal bleeding, demise Discharge Date/Time: 03/08/18 00:51 Interventions: ED Discharge Assessment Last Done: 03/08/18 00:42 Instructions: DI for Miscarriage Activity Restrictions/Additional Instructions: *You have been diagnosed with [ failed , vaginal bleeding ] *What to do: *Follow up with your OB provider tomorrow call for an appointment. Let them know you were seen in the Emergency Department and that we ask that you be seen in follow up *Return to ER if you should have any new, worsening or concerning symptoms , such as [increased bleeding or pain ] Prescriptions: No Action tramadol 50 mg tablet RF: 0 pyridoxine (vitamin B6) [Vitamin B-6] 50 mg tablet RF: 0 norethindrone acetate 5 mg tablet RF: 0 PNV cmb#95-ferrous fumarate-FA [] 28 mg iron- 800 mcg tablet 1 tab PO DAILY RF: 0
[2018-03-07 23:57] LABS: Hemoglobin 12.6 g/dL (12.0-16.0)
[2018-03-08 00:25] LABS: HCG Quantitative /Beta subunit 7795.2 mIU/mL
[2018-03-08 00:36] VITALS: BP 110/73; BP 96/76; BP 97/63; PULSE 70; PULSE 87; PULSE 90
[2018-03-08 00:42] VITALS: BP 110/73; PULSE 87; O2SAT 100
== END 2018-03-08 00:51 | disposition home or self-care (01) ==
PROVIDERS: Emergency Provider Emergency Medicine
DX: O03.9 Complete or unspecified spontaneous abortion without complication (principal)
CPT/HCPCS: 36415; 76801; 76817; 84702; 85014; 85018; 86850; 86900; 86901; 99283; 99284